=== PATIENT | male | born 1950 | race Caucasian/White ===

== ENCOUNTER 2019-06-04 09:18 | Day surgery (SDC) | payer OTHER ==
[2019-06-04 10:11] LABS: MPV 8.3 fL (7.6-11.3)
[2019-06-04] MEDS ORDERED: NA CHLORIDE 0.9% 1,000 ML ONE (10:11)
[2019-06-04] MEDS ORDERED: MIDAZOLAM HCL 2 MG/2 ML INJ ONE (10:11)
[2019-06-04] MEDS ORDERED: NALOXONE 0.4 MG/ML VIAL ONE (10:12)
[2019-06-04] MEDS ORDERED: FENTANYL CITR 100 MCG/2 ML ONE (10:12)
[2019-06-04 10:46] LABS: Platelet Estimate ADEQ
[2019-06-04 12:20] VITALS: BMI 31.2
--- NOTE | 2019-06-04 12:23 | RAD REPORT ---
EXAM DESCRIPTION: CT - Muscle/Soft Bx - 06/04/2019 11:49 am CLINICAL HISTORY: Right shoulder mass TECHNIQUE: Risks, benefits and alternatives to the procedure explained to patient and informed conse nt obtained Patient was medicated with 4 milligrams Versed and and 75 micrograms fentanyl intravenously. Consciou s sedation was performed for approximately 45 minutes. Nurse monitored the vital signs. The skin, subcutaneous tissues and muscle anesthetize with Lidocaine. Under CT guidance, 17 gauge needle was placed into the right shoulder mass. 18 gauge needle was then inserted through this and 6 core specimens obtained. The specimens vary in size from 3-13 millimeters. Material was given to pathology. Post biopsy images are unremarkable. Patient experienced immediate complication The preliminary pathology report is atypical cells All CT scans are performed using dose optimization technique as appropriate and may include automated exposure control or mA/KV adjustment according to patient size. IMPRESSION: Core biopsies of a right shoulder mass
[2019-06-04 14:03] VITALS: BP 101/62; TEMP 98; O2SAT 96
--- OUTSIDE RECORDS SUMMARY | 2019-06-14 17:59 | XMS REPORT ---
:1950 Author Organization [employer] Care Team Providers Name Role Phone Simon Hassan Provider Role Unavailable Allergies, Adverse Reactions, Alerts Substance Reaction Event Type penicillin Info Not Available Drug Allergy Problems Problem Type Condition Code Onset Dates Condition Status Assessment Pain in joint of right shoulder M25.511 Active Assessment Adhesive capsulitis of right M75.01 Active shoulder Medications Medication Code System Code Instructions Start Date End [place] [address] Active not defined Potassium 2-10 [place] [address] Active not defined 3-01 [place] [address] Active not defined taminophen 4-10 [place] [address] Active not defined 0-93 Results No Known Results Summary Purpose eClinicalWorks Submission
--- OUTSIDE RECORDS SUMMARY | 2019-06-14 17:59 | XMS REPORT ---
:1950 [facility] Address [address] [place] [address] Dr. [address] [place] [id number] Care Team Providers Name Role Phone Unavailable Unavailable Unavailable Problems This patient has no known problems. Allergies, Adverse Reactions, Alerts This patient has no known allergies or adverse reactions. Medications This patient has no known medications.
== END 2019-06-04 14:00 | disposition home or self-care (01) ==
LOC: DS 09:18
PROVIDERS: ATTEND Family Medicine
DX: C64.9 Malignant neoplasm of unspecified kidney, except renal pelvis (principal); C79.89 Secondary malignant neoplasm of other specified sites
CPT/HCPCS: 36415; 85049; 88305; 88333; 20206; J2250; J3010; J7030; J2310

== ENCOUNTER 2019-08-13 20:16 | Emergency (ER) | payer OTHER ==
--- OUTSIDE RECORDS SUMMARY | 2019-08-13 20:17 | XMS REPORT ---
[...] Date End [place] [address] Active not defined Potassium 2-10 [place] [address] Active not defined 3-01 [place] [address] Active not defined taminophen 4-10 [place] [address] Active not defined 0-93 Results No Known Results Summary Purpose eClinicalWorks Submission
--- OUTSIDE RECORDS SUMMARY | 2019-08-13 20:17 | XMS REPORT ---
:1950 [facility] Address [address] [place] [address] Dr. [address] [place] [address] Care Team Providers Name Role Phone Unavailable Unavailable Unavailable Problems This patient has no known problems. Allergies, Adverse Reactions, Alerts This patient has no known allergies or adverse reactions. Medications This patient has no known medications.
[2019-08-13] MEDS ORDERED: NA CHLORIDE 0.9% 500 ML ONE (20:59)
[2019-08-13 21:02] LABS: Hematocrit 41.1 % (39.6-49.0); Lymphocytes % 19.4 % (15.3-44.8); MPV 8.1 fL (7.6-11.3); RBC Red Blood Cell Count 4.95 M/uL (4.33-5.43)
[2019-08-13 21:18] LABS: Albumin 3.5 g/dL (3.4-5.0); Bilirubin Total 0.5 mg/dL (0.2-1.0); Potassium 4.6 mmol/L (3.5-5.1)
--- NOTE | 2019-08-13 23:09 | ER ---
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 Transition of care: patient was not received from another setting of care. Onset of symptoms was August 11, 2019. Risk Assessment: Do you want to hurt yourself or someone else? Patient reports no desire to harm self or others. Initial Sepsis Screen: Does the patient meet any 2 criteria? No. Patient's initial sepsis screen is negative. Does the patient have a suspected source of infection? No. Patient's initial sepsis screen is negative. Care prior to arrival: None. 20:35 Method Of Arrival: Ambulatory bb 20:35 Acuity: LEIDA 2 bb Historical: - Allergies: 20:44 No Known Allergies; bb - Home Meds: 20:44 ropinirole oral oral [Active]; Temazepam Oral [Active]; losartan oral oral [Active]; bb Hydrocodone-Acetaminophen Oral [Active]; radiation therapy [Active]; - PMHx: 20:44 COPD; Osteoporosis; clear cell cancer; bb - Immunization history:: Adult Immunizations up to date. - Social history:: Smoking status: Patient uses tobacco products, smokes one-half pack cigarettes per day. - Ebola Screening: : No symptoms or risks identified at this time. Screenin:26 Abuse screen: Denies threats or abuse. Denies injuries from another. Nutritional wh screening: No deficits noted. Tuberculosis screening: No symptoms or risk factors identified. Fall Risk None identified. Assessment: 20:45 General: Appears in no apparent distress. Behavior is calm, cooperative, appropriate wh for age. Pain: Denies pain. Neuro: Level of Consciousness is awake, alert, obeys commands, Oriented to person, place, time, situation, Appropriate for age. Cardiovascular: Heart tones S1 S2. Respiratory: Airway is patent Respiratory effort is even, unlabored, Respiratory pattern is regular, symmetrical, Breath sounds are clear bilaterally. GI: Abdomen is flat, non-distended. : No signs and/or symptoms were reported regarding the genitourinary system. EENT: Throat is pink. Derm: Skin is intact, is healthy with good turgor, Skin is pink, warm \T\ dry. normal. Musculoskeletal: Circulation, motion, and sensation intact. 21:30 Reassessment: Patient appears in no apparent distress at this time. No changes from previously documented assessment. Patient and/or family updated on plan of care and expected duration. Pain level reassessed. Patient is alert, oriented x 3, equal unlabored respirations, skin warm/dry/pink. 23:25 Reassessment: Patient is alert, oriented x 3, equal unlabored respirations, skin bb warm/dry/pink. pt verbalized understanding of and agrees to plan of care discharge instructions given pt ambulated with steady gait to exit accompanied by spouse. Vital Signs: 20:44 BP 158 / 89; Pulse 79; Resp 20 S; Temp 98.4(O); Pulse Ox 98% on R/A; Weight 98.88 kg bb (R); Height 5 ft. 11 in. (180.34 cm) (R); Pain 0/10; 21:32 BP 143 / 83; Pulse 74; Resp 18; Pulse Ox 97% ; wh 23:27 BP 160 / 92; Pulse 78; Resp 20 S; Pulse Ox 97% on R/A; bb 20:44 Body Mass Index 30.40 (98.88 kg, 180.34 cm) ED Course: 20:19 Patient arrived in ED. cl3 20:30 Sudhir Proctor PA is PHCP. jm 20:30 Alex Mustafa MD is Attending Physician. jmm 20:36 Triage completed. bb 20:38 Won Reyes is Primary Nurse. wh 20:44 Arm band placed on Patient placed in an exam room, on a stretcher, on pulse oximetry. Family accompanied patient. 21:25 Inserted saline lock: 22 gauge in left antecubital area, using aseptic technique. ca1 21:27 Patient has correct armband on for positive identification. Bed in low position. Call light in reach. Side rails up X 1. Pulse ox on. NIBP on. 22:20 Chest Pa And Lat (2 Views) XRAY In Process Unspecified. EDMS 23:26 No provider procedures requiring assistance completed. IV discontinued, intact, leobardo bleeding controlled, No redness/swelling at site. Pressure dressing applied. Administered Medications: 21:07 Drug: NS 0.9% 500 ml Route: IV; Rate: bolus; Site: left antecubital; Outcome: 23:08 Discharge ordered by . willi 23:26 Discharged to home ambulatory, with family. bb 23: Condition: stable 23:26 Discharge instructions given to patient, Instructed on discharge instructions, follow up and referral plans. medication usage, Demonstrated understanding of instructions, follow-up care, medications, Prescriptions given X 2. 23:28 Patient left the ED. bb Signatures: Dispatcher [employer] EDMS Sudhir Proctor PA PA jmm Ballard, Brenda, RN RN Won Bishop Cheryl RN RN Fermín Syed cl3
--- NOTE | 2019-08-13 23:10 | EDPHYS ---
Physician Documentation [facility] Name: Mookie Manning Age: 68 yrs Sex: Male : 1950 Arrival Date: 08/13/2019 Time: 20:19 Bed 14 Private MD: ED Physician Alex Mustafa HPI: 08/13 20:44 This 68 yrs old Male presents to ER via Ambulatory with complaints of jmm Weakness, Fever. 20:44 The patient or guardian reports cough. Onset: The symptoms/episode began/occurred jmm gradually. 20:44 Modifying factors: The symptoms are alleviated by nothing. jmm 20:44 Associated signs and symptoms: Pertinent positives: fever, sore throat. This is a 68 jmm year old male with a history of copd, clear cell cancer, presents to the ED with complaints of cough, body aches, sore throat beginning yesterday. Denies vomiting. Complains of diarrhea. . Historical: - Allergies: 20:44 No Known Allergies; bb - Home Meds: 20:44 ropinirole oral oral [Active]; Temazepam Oral [Active]; losartan oral oral [Active]; bb Hydrocodone-Acetaminophen Oral [Active]; radiation therapy [Active]; - PMHx: 20:44 COPD; Osteoporosis; clear cell cancer; bb - Immunization history:: Adult Immunizations up to date. - Social history:: Smoking status: Patient uses tobacco products, smokes one-half pack cigarettes per day. - Ebola Screening: : No symptoms or risks identified at this time. ROS: 20:44 Cardiovascular: Negative for chest pain, palpitations, and edema. jmm 20:44 Constitutional: Positive for body aches, fever. 20:44 ENT: Positive for sore throat. 20:44 Respiratory: Positive for cough. 20:44 Abdomen/GI: Positive for diarrhea. 20:44 All other systems are negative. Exam: 20:44 Constitutional: This is a well developed, well nourished patient who is awake, alert, jmm and in no acute distress. Head/Face: atraumatic. Eyes: EOMI, no conjunctival erythema appreciated ENT: Moist Mucus Membranes Neck: Trachea midline, Supple Chest/axilla: Normal chest wall appearance and motion. Cardiovascular: Regular rate and rhythm. No edema appreciated Respiratory: Normal respirations, no respiratory distress appreciated 20:44 Back: Normal ROM Skin: General appearance color normal MS/ Extremity: Moves all extremities, no obvious deformities appreciated, no edema noted to the lower extremities Neuro: Awake and alert, normal gait 20:44 ENT: Posterior pharynx: erythema, that is moderate. Vital Signs: 20:44 BP 158 / 89; Pulse 79; Resp 20 S; Temp 98.4(O); Pulse Ox 98% on R/A; Weight 98.88 kg bb (R); Height 5 ft. 11 in. (180.34 cm) (R); Pain 0/10; 21:32 BP 143 / 83; Pulse 74; Resp 18; Pulse Ox 97% ; wh 23:27 BP 160 / 92; Pulse 78; Resp 20 S; Pulse Ox 97% on R/A; bb 20:44 Body Mass Index 30.40 (98.88 kg, 180.34 cm) bb MDM: 20:32 Patient medically screened. mary kay 23:07 Data reviewed: vital signs, nurses notes. Counseling: I had a detailed discussion with willi the patient and/or guardian regarding: the historical points, exam findings, and any diagnostic results supporting the discharge/admit diagnosis, lab results, radiology results, the need for outpatient follow up, to return to the emergency department if symptoms worsen or persist or if there are any questions or concerns that arise at home. ED course: Patient is alert and non toxic in appearance in the ED. No signs of resp distress. Labs normal. Clinical signs of influenza. Will treat with tamiflu. Patient otherwise given strict return precautions. Patient understood and agrees with the plan of care. . 08/13 20:37 Order name: CBC with Diff; Complete Time: 21:25 [facility] 08/13 20:37 Order name: CMP; Complete Time: 21:25 [facility] 08/13 20:37 Order name: Procalcitonin; Complete Time: 21:54 [facility] 08/13 20:37 Order name: Lactate; Complete Time: 21:25 [facility] 08/13 20:37 Order name: Flu; Complete Time: 21:25 [facility] 08/13 20:37 Order name: Strep; Complete Time: 21:25 [facility] 08/13 20:37 Order name: Saline Lock; Complete Time: 21:07 [facility] 08/13 21:12 Order name: Throat Culture [facility] 08/13 21:59 Order name: Chest Pa And Lat (2 Views) XRAY willi Administered Medications: 21:07 Drug: NS 0.9% 500 ml Route: IV; Rate: bolus; Site: left antecubital; wh Disposition: 08/14 08:36 Co-signature as Attending Physician, Alex Mustafa MD I agree with the assessment and [facility] plan of care. Chart complete. Disposition: 08/13/19 23:08 Discharged to Home. Impression: Acute upper respiratory infection, unspecified. - Condition is Stable. - Discharge Instructions: Upper Respiratory Infection, Adult. - Prescriptions for Zithromax Z- Austyn 250 mg Oral Tablet - take 1 tablet by ORAL route as directed for 5 days Day 1 - take two (2) tablets one time. Day 2, 3, 4 , 5 take one (1) tablet once daily.; 6 tablet. Tamiflu 75 mg Oral Capsule - take 1 tablet by ORAL route every 12 hours for 5 days; 10 tablet. - Medication Reconciliation Form, Thank You Letter, Antibiotic Education, Prescription Opioid Use form. - Follow up: Private Physician; When: 2 - 3 days; Reason: Recheck today's complaints, Continuance of care, Re-evaluation by your physician. Signatures: Dispatcher [employer] Alex De La Cruz MD MD cha Mickail, Joel, PA PA jmm Ballard, Brenda, LJ RN Won Bishop Corrections: (The following items were deleted from the chart) 08/13 23:28 23:08 08/13/2019 23:08 Discharged to Home. Impression: Acute upper respiratory bb infection, unspecified. Condition is Stable. Forms are Medication Reconciliation Form, Thank You Letter, Antibiotic Education, Prescription Opioid Use. Follow up: Private Physician; When: 2 - 3 days; Reason: Recheck today's complaints, Continuance of care, Re-evaluation by your physician. willi
[2019-08-13 23:51] VITALS: TEMP 98.4
[2019-08-13 23:52] VITALS: O2SAT 97
[2019-08-13 23:54] VITALS: BP 160/92
--- NOTE | 2019-08-14 08:52 | RAD REPORT ---
EXAM DESCRIPTION: RAD - Chest Pa And Lat (2 Views) - 08/13/2019 10:19 pm CLINICAL HISTORY: cough, fever COMPARISON: Chest Pa And Lat (2 Views) dated 10/22/2017; CHEST PA AND LAT 2 VIEW dated 11/09/2013; CT-R AD THERAPY FLD PLACE-CHEST dated 07/15/2019 TECHNIQUE: Frontal and lateral views of the chest were obtained. FINDINGS: The lungs are clear of an acute mass or infiltrate. Interstitial pattern is prominent but matches comparison. Heart size is normal and central vasculature is within normal limits. No pleur al effusion or pneumothorax seen. Lateral view shows significant compression fracture near the thora columbar junction similar to the 2018 study. Patient has a known mass of the right shoulder. The scap hira bone destruction is a known finding. No acute aortic finding. Aorta is tortuous in the lower thor acic portion. This matches comparison. IMPRESSION: No acute cardiopulmonary process. Bone destruction is present in the right scapula and right shoulder region. Patient has a known mass that is undergoing treatment.
== END 2019-08-13 23:28 | disposition home or self-care (01) ==
LOC: ER 20:16
DX: J06.9 Acute upper respiratory infection, unspecified (principal); J44.9 Chronic obstructive pulmonary disease, unspecified; F17.210 Nicotine dependence, cigarettes, uncomplicated
CPT/HCPCS: 87070; 85025; 36415; 87081; 83605; 80053; 84145; 87804 ×2; 71046; 99284; J7040

== ENCOUNTER 2021-06-13 14:33 | Observation (INO) | payer OTHER ==
[2021-06-13] MEDS ORDERED: NA CHLORIDE 0.9% 50 ML ONE (14:40)
[2021-06-13] MEDS ORDERED: ASPIRIN 81 MG CHEWABLE TABLET ONE (15:17)
[2021-06-13] MEDS ORDERED: NA CHLORIDE 0.9% 1,000 ML ONE (15:18)
[2021-06-13] MEDS ORDERED: MORPHINE 2 MG/ML SYR ONE (15:18)
[2021-06-13 15:34] LABS: Absolute Lymphocytes (CBC) 1.6 K/uL (0.7-4.9); Hematocrit 41.4 % (39.6-49.0); Lymphocytes % 22.1 % (15.3-44.8); MPV 8.3 fL (7.6-11.3); RBC Red Blood Cell Count 4.31 M/uL (4.33-5.43)
[2021-06-13 15:38] LABS: Protime INR 1.09
[2021-06-13 15:53] LABS: ALT/SGPT 29 U/L (12-78); AST/SGOT 19 U/L (15-37); Albumin 3.4 g/dL (3.4-5.0); Alkaline Phosphatase 103 U/L (45-117); BUN Blood Urea Nitrogen 15 mg/dL (7-18); Bicarbonate 27 mmol/L (21-32); Bilirubin Direct 0.2 mg/dL (0-0.2); Bilirubin Total 0.5 mg/dL (0.2-1.0); Glucose Level 97 mg/dL (74-106); Potassium 3.7 mmol/L (3.5-5.1); Sodium Level 138 mmol/L (136-145)
[2021-06-13 15:54] LABS: NT PRO-BNP 243 pg/mL (<125); Troponin (Emerg Dept Use Only) < 0.02 ng/mL (0.0-0.045)
--- NOTE | 2021-06-13 16:11 | EDPHYS ---
Physician Documentation [facility] Name: Mookie Manning Age: 70 yrs Sex: Male : 1950 Arrival Date: 06/13/2021 Time: 14:35 Bed 15 Private MD: Alexandru Oliveira ED Physician Mickey Okeefe HPI: 06/13 15:05 This 70 yrs old Male presents to ER via Ambulatory with complaints of Chest cp Pain. 15:05 The patient or guardian reports chest pain that is located primarily in the anterior cp chest wall, left. 15:05 Onset: yesterday. cp 15:05 Associated signs and symptoms: Pertinent positives: tingling of hands, Pertinent cp negatives: abdominal pain, diaphoresis, lower extremity pain, lower extremity swelling, palpitations, shortness of breath, syncope. 15:05 Patient reports intermittent episodes of chest pain that started yesterday morning cp while in garage. Patient reports pain resolved as the day progressed and returned today while in garage. Patient reports pain has continued while in ED. Historical: - Allergies: 14:44 No Known Allergies; aa5 - PMHx: 14:44 COPD; Osteoporosis; aa5 14:46 Clear cell carcinoma; aa5 - Immunization history:: Client reports having NOT received the Covid vaccine. - Social history:: Smoking status: Patient reports the use of cigarette tobacco products, smokes one pack cigarettes per day. ROS: 15:10 Cardiovascular: Positive for chest pain, Negative for edema, palpitations. cp 15:10 Eyes: Negative for injury, pain, redness, and discharge. cp 15:10 Constitutional: Negative for body aches, chills, fever, poor PO intake. 15:10 ENT: Negative for ear pain, sore throat, difficulty swallowing, difficulty handling secretions. 15:10 Respiratory: Positive for shortness of breath, on exertion. Negative for cough, wheezing. 15:10 Abdomen/GI: Negative for abdominal pain, nausea, vomiting, and diarrhea. 15:10 Back: Positive for radiated pain, of the thoracic area. 15:10 Neuro: Negative for altered mental status, headache, numbness, tingling, weakness. cp 15:10 All other systems are negative. Exam: 15:11 ECG was reviewed by the Attending Physician. cp 15:15 Constitutional: The patient appears in no acute distress, alert, awake, cp non-diaphoretic, non-toxic, well developed, well nourished. 15:15 Head/Face: Normocephalic, atraumatic. cp 15:15 Eyes: Periorbital structures: appear normal, Conjunctiva: normal, no exudate, no cp injection, Sclera: no appreciated abnormality, Lids and lashes: appear normal, bilaterally. 15:15 ENT: External ear(s): are unremarkable, Nose: is normal, Mouth: Lips: moist, Oral cp mucosa: moist, Posterior pharynx: Airway: no evidence of obstruction, patent. 15:15 Neck: ROM/movement: is normal, is supple, without pain, no range of motions limitations, no nuchal rigidity. 15:15 Chest/axilla: Inspection: normal. 15:15 Cardiovascular: Rate: normal, Rhythm: regular, Edema: is not appreciated, JVD: is not appreciated. 15:15 Respiratory: the patient does not display signs of respiratory distress, Respirations: normal, no use of accessory muscles, no retractions, labored breathing, is not present, Breath sounds: are clear throughout, no decreased breath sounds, no stridor, no wheezing. 15:15 Abdomen/GI: Inspection: abdomen appears normal, Palpation: abdomen is soft and non-tender, in all quadrants. 15:15 Back: pain, that is mild, of the thoracic area, ROM is painful, with flexion. 15:15 Skin: cellulitis, is not appreciated, no rash present. 15:15 Neuro: Orientation: to person, place \\T\\ time. Mentation: is normal, Motor: moves all fours, strength is normal. Vital Signs: 14:45 BP 133 / 85; Pulse 69; Resp 18 S; Temp 98.3(TE); Pulse Ox 99% on R/A; Weight 90.72 kg aa5 (R); Height 5 ft. 11 in. (180.34 cm) (R); 15:00 BP 145 / 87; Pulse 65; Resp 17; Pulse Ox 99% ; bp 16:00 BP 144 / 93; Pulse 63; Resp 16; Pulse Ox 98% ; bp 17:00 BP 163 / 93; Pulse 59; Resp 16; Pulse Ox 97% ; bp 17:58 BP 157 / 98; Pulse 72; Resp 16; Pulse Ox 98% ; bp 20:00 BP 150 / 84; Pulse 67; Resp 18; Pulse Ox 97% ; Pain 6/10; dc2 14:45 Body Mass Index 27.89 (90.72 kg, 180.34 cm) aa5 MDM: 15:01 Patient medically screened. cp 15:30 Differential diagnosis: abnormal EKG, acute myocardial infarction, myocarditis, cp pleurisy, pneumonia, pneumothorax, stable angina, unstable angina. 16:10 Data reviewed: vital signs, nurses notes, lab test result(s), EKG, radiologic studies, cp plain films. 16:10 The patient was given aspirin in the Emergency Department. Test interpretation: by ED cp physician or midlevel provider: ECG, plain radiologic studies. Counseling: I had a detailed discussion with the patient and/or guardian regarding: the historical points, exam findings, and any diagnostic results supporting the discharge/admit diagnosis, lab results, radiology results, the need for further work-up and treatment in the hospital, smoking cessation. Response to treatment: the patient's symptoms have markedly improved after treatment. Physician consultation: Alexandru Oliveira MD was called at 16:05, was contacted at 16:05, regarding admission, to the telemetry unit. patient's condition. 06/13 15:02 Order name: Basic Metabolic Panel 06/13 15: Order name: CBC with Diff; Complete Time: 16:01 06/13 16:01 Interpretation: Normal except: RBC 4.31. 06/13 15:02 Order name: LFT's; Complete Time: 16:01 06/13 16:02 Interpretation: Normal except: GLOB 3.6; A/G 0.9. 06/13 15:02 Order name: Magnesium; Complete Time: 16:01 06/13 15:02 Order name: NT PRO-BNP; Complete Time: 16:01 06/13 16:02 Interpretation: Abnormal: NT PRO-BNP 243. 06/13 15:02 Order name: PT-INR; Complete Time: 16:01 06/13 15:02 Order name: Troponin (emerg Dept Use Only); Complete Time: 16:01 06/13 15:03 Order name: Basic Metabolic Panel; Complete Time: 16:01 EDMS 06/13 15:14 Order name: COVID-19 SARS RT PCR (Document "Date of Onset" if Symptomatic) 06/13 16:28 Order name: Basic Metabolic Panel [facility] 06/13 16:28 Order name: Troponin I [facility] 06/13 16:28 Order name: Troponin I [facility] 06/13 16:47 Order name: Basic Metabolic Panel [facility] 06/13 16:47 Order name: CBC with Automated Diff [facility] 06/13 15:02 Order name: XRAY Chest (1 view); Complete Time: 17:16 06/13 17:16 Interpretation: Report review. 06/13 15:02 Order name: EKG; Complete Time: 15:03 06/13 15:02 Order name: Cardiac monitoring; Complete Time: 15:53 06/13 15:02 Order name: EKG - Nurse/Tech; Complete Time: 15:53 06/13 15:02 Order name: IV Saline Lock; Complete Time: 15:53 06/13 15:02 Order name: Labs collected and sent; Complete Time: 15:53 06/13 15:02 Order name: O2 Per Protocol; Complete Time: 15:53 06/13 15:02 Order name: O2 Sat Monitoring; Complete Time: 15:53 06/13 16:20 Order name: Diet Regular; Complete Time: 16:20 06/13 16:28 Order name: CONS Physician Consult; Complete Time: 19:09 [facility] 06/13 16:28 Order name: EKG Electrocardiogram; Complete Time: 19: [facility] 06/13 16:28 Order name: EKG Electrocardiogram; Complete Time: 19: EDMT EC:11 Rate is 65 beats/min. Rhythm is regular. DE interval is normal. QRS interval is normal. cp QT interval is normal. T waves are Inverted in lead aVR. Interpreted by me. Reviewed by me. Administered Medications: 15:24 Drug: Aspirin Chewable Tablet 324 mg Route: PO; bp 17:56 Follow up: Response: No adverse reaction bp 15:24 Drug: morphine 2 mg Route: IVP; Site: right antecubital; bp 17:56 Follow up: Response: No adverse reaction; Pain is decreased bp 15:24 Drug: NS 0.9% 500 ml Route: IV; Rate: bolus; Site: right antecubital; bp 17:56 Follow up: IV Status: Completed infusion; IV Intake: 500ml bp 15:25 Drug: NS 0.9% 500 ml Route: IV; Rate: 125 ml/hr; Site: right antecubital; bp 20:05 Follow up: IV Status: Completed infusion; IV Intake: 500ml dc2 Disposition Summary: 06/13/21 16:10 Hospitalization Ordered Hospitalization Status: Observation cp Provider: Alexandru Oliveira cp Location: Telemetry/MedSurg (observation) cp Condition: Stable cp Problem: new cp Symptoms: have improved cp Bed/Room Type: Standard cp Room Assignment: 223(06/13/21 19:09) dw Diagnosis - Angina pectoris, unspecified cp Forms: - Medication Reconciliation Form cp - SBAR form cp Addendum: 06/16/2021 19:07 Co-signature as Attending Physician, Mickey moreno Signatures: Dispatcher [employer] Cande Gaming, RN RN Mickey Velasquez MD MD pkl Calderon, Audri RN RN aa5 Alex Andrews PA PA cp Peltier, Brian RN RN [facility] RN dc2 Corrections: (The following items were deleted from the chart) 06/13 14:46 14:44 PMHx: clear cell cancer; aa5 aa5 19:09 16:10 cp dw
--- NOTE | 2021-06-13 16:11 | ER ---
Nurse's Notes [facility] Name: Mookie Manning Age: 70 yrs Sex: Male : 1950 Arrival Date: 06/13/2021 Time: 14:35 Bed 15 Private MD: Alexandru Oliveira Diagnosis: Angina pectoris, unspecified Presentation: 06/13 14:45 Chief complaint: Patient states: chest pain that began yesterday, pt also reports SOB aa5 on exertion and states "both of my hands feel kind of numb". Coronavirus screen: At this time, the client does not indicate any symptoms associated with coronavirus-19. Ebola Screen: No symptoms or risks identified at this time. Initial Sepsis Screen: Does the patient meet any 2 criteria? No. Patient's initial sepsis screen is negative. Does the patient have a suspected source of infection? No. Patient's initial sepsis screen is negative. Risk Assessment: Do you want to hurt yourself or someone else? Patient reports no desire to harm self or others. Onset of symptoms was June 12, 2021. 14:45 Acuity: LEIDA 3 aa5 14:45 Method Of Arrival: Ambulatory aa5 Triage Assessment: 14:52 General: Appears distressed, uncomfortable, Behavior is cooperative, appropriate for bp age, anxious. Pain: Complains of pain in chest. EENT: No deficits noted. Neuro: Level of Consciousness is awake, alert, obeys commands. Cardiovascular: Rhythm is sinus rhythm. Historical: - Allergies: 14:44 No Known Allergies; aa5 - PMHx: 14:44 COPD; Osteoporosis; aa5 14:46 Clear cell carcinoma; aa5 - Immunization history:: Client reports having NOT received the Covid vaccine. - Social history:: Smoking status: Patient reports the use of cigarette tobacco products, smokes one pack cigarettes per day. Screenin:00 Abuse screen: Denies threats or abuse. Denies injuries from another. Nutritional bp screening: No deficits noted. Tuberculosis screening: No symptoms or risk factors identified. Fall Risk None identified. Assessment: 14:45 General: SEE TRIAGE NOTE. bp 16:00 Reassessment: No changes from previously documented assessment. Patient and/or family bp updated on plan of care and expected duration. Pain level reassessed. ADMIT INITIATED. 17:56 Reassessment: No changes from previously documented assessment. Patient and/or family bp updated on plan of care and expected duration. Pain level reassessed. ADMIT IN PROCESS. 19:20 Reassessment: Attempt to call report, no answer . dc2 19:30 Pain: Pain began 1 day ago. dc2 19:30 Pain: Denies pain. dc2 19:47 Reassessment: Attempt to call report , no one on the 2nd floor is answering the phone dc2 after multiple attempts. 19:48 Reassessment: Call 2nd floor link machine operator, speak to Zbigniew for report. dc2 20:00 Reassessment: Pt instructed on POC re transfer to room 223. Pt verbalizes understanding.dc2 20:23 Reassessment: Pt updated on POC regarding going upstairs to room. EDT extremely busy dc2 but will be going up shortly. Pt very calm and states its no problem . Vital Signs: 14:45 BP 133 / 85; Pulse 69; Resp 18 S; Temp 98.3(TE); Pulse Ox 99% on R/A; Weight 90.72 kg aa5 (R); Height 5 ft. 11 in. (180.34 cm) (R); 15:00 BP 145 / 87; Pulse 65; Resp 17; Pulse Ox 99% ; bp 16:00 BP 144 / 93; Pulse 63; Resp 16; Pulse Ox 98% ; bp 17:00 BP 163 / 93; Pulse 59; Resp 16; Pulse Ox 97% ; bp 17:58 BP 157 / 98; Pulse 72; Resp 16; Pulse Ox 98% ; bp 20:00 BP 150 / 84; Pulse 67; Resp 18; Pulse Ox 97% ; Pain 6/10; dc2 14:45 Body Mass Index 27.89 (90.72 kg, 180.34 cm) aa5 ED Course: 14:35 Patient arrived in ED. ds1 14:35 Alexandru Oliveira MD is Private Physician. ds1 14:44 Arm band placed on. aa5 14:46 Triage completed. aa5 14:50 Jefferson Berumen, LJ is Primary Nurse. bp 14:50 Alex Andrews PA is PHCP. cp 14:50 Mickey Okeefe MD is Attending Physician. cp 15:12 EKG done, by ED staff, reviewed by Alex ODELL. gd 15:20 Inserted saline lock: 20 gauge in right antecubital area, using aseptic technique. bp Blood collected. Patient maintains SpO2 saturation greater than 95% on room air. 15:54 XRAY Chest (1 view) Sent. bp 15:54 Basic Metabolic Panel Sent. bp 15:55 XRAY Chest (1 view) In Process Unspecified. EDMS 16:00 Patient has correct armband on for positive identification. Bed in low position. Call bp light in reach. Side rails up X2. front desk monitor on. Pulse ox on. NIBP on. 16:10 Alexandru Oliveira MD is Hospitalizing Provider. cp 19:09 CBC with Automated Diff Sent. bp 19:09 Basic Metabolic Panel Sent. bp 19:09 Troponin I Sent. bp 19:09 Troponin I Sent. bp 19:09 Basic Metabolic Panel Sent. bp 19:21 No provider procedures requiring assistance completed. dc2 19:21 IV is patent, dc2 Administered Medications: 15:24 Drug: Aspirin Chewable Tablet 324 mg Route: PO; bp 17:56 Follow up: Response: No adverse reaction bp 15:24 Drug: morphine 2 mg Route: IVP; Site: right antecubital; bp 17:56 Follow up: Response: No adverse reaction; Pain is decreased bp 15:24 Drug: NS 0.9% 500 ml Route: IV; Rate: bolus; Site: right antecubital; bp 17:56 Follow up: IV Status: Completed infusion; IV Intake: 500ml bp 15:25 Drug: NS 0.9% 500 ml Route: IV; Rate: 125 ml/hr; Site: right antecubital; bp 20:05 Follow up: IV Status: Completed infusion; IV Intake: 500ml dc2 Intake: 17:56 IV: 500ml; Total: 500ml. bp 20:05 IV: 500ml; Total: 1000ml. dc2 Outcome: 16:10 Decision to Hospitalize by Provider. cp 19:52 Admitted to Tele accompanied by tech, via wheelchair, room 223, with chart, Report dc2 called to LJ Coy 19:52 Condition: stable 20:38 Patient left the ED. dc2 Signatures: Dispatcher [employer] [facility] Hardy, Doris ds1 Yovana Zavala RN RN aa5 Alex Andrews PA PA cp Jefferson Berumen RN RN bp MateuszDeborah RN RN dc2 Willis Carrera Corrections: (The following items were deleted from the chart) 14:46 14:44 PMHx: clear cell cancer; aa5 aa5
[2021-06-13] MEDS ORDERED: ONDANSETRON 4 MG/2 ML VIAL IV PRN (16:24)
[2021-06-13] MEDS ORDERED: MORPHINE 2 MG/ML SYR IV PRN (16:31)
--- NOTE | 2021-06-13 16:42 | RAD REPORT ---
EXAM DESCRIPTION: RAD - Chest Single View - 06/13/2021 3:55 pm CLINICAL HISTORY: CHEST PAIN COMPARISON: August 2019 two view chest, 05/30/2021 bone scan, 05/30/2021 CT chest abdomen and pelvi s TECHNIQUE: AP portable chest image was obtained 06/13/2021 3:55 pm . FINDINGS: Chronic interstitial lung pattern is present matching comparison. Heart and vasculature ar e normal. No measurable pleural effusion and no pneumothorax. No hilar mass or lymphadenopathy identi fied. Bilateral shoulder joint degenerative changes. Patient has a known right scapula lesion. This w as stable on the recent CT study with a bone scan showing no abnormal activity. No acute aortic findi ngs suspected. IMPRESSION: No acute cardiopulmonary process.
[2021-06-13 21:30] VITALS: BMI 3905.5
[2021-06-14 03:56] LABS: Absolute Lymphocytes (CBC) 2.1 K/uL (0.7-4.9); Basophils % 0.5 % (0-1.3); Hematocrit 40.6 % (39.6-49.0); Lymphocytes % 29.5 % (15.3-44.8); RBC Red Blood Cell Count 4.16 M/uL (4.33-5.43)
[2021-06-14 04:07] LABS: Potassium 3.8 mmol/L (3.5-5.1)
[2021-06-14] MEDS ORDERED: ASPIRIN EC 81 MG TAB PO SCH (09:00)
[2021-06-14 10:18] VITALS: O2SAT 96
[2021-06-14 10:22] VITALS: BP 143/89
--- NOTE | 2021-06-14 11:21 | EKG ---
Test Date: 2021-06-13 Test Time: 15:07:44 Police Shift Commander: AIYANA MEASUREMENT RESULTS: Intervals: Rate: 65 NH: 196 QRSD: 94 QT: 424 QTc: 440 [place]: P: 58 NH: 196 QRS: 58 T: 59 INTERPRETIVE STATEMENTS: Normal sinus rhythm Normal ECG Compared to ECG 06/20/2020 14:00:27 Atrial premature complex(es) no longer present Electronically Signed On 06-14-21 11:20:17 TIMBER SELECTOR by Yaw Atkins
[2021-06-14] MEDS ORDERED: LOSARTAN/HCTZ 50-12.5 PO SCH (11:40)
[2021-06-14] MEDS ORDERED: HYDROCODONE/APAP 5/325 MG TAB PO PRN (12:10)
[2021-06-14 12:19] VITALS: TEMP 97.7
[2021-06-14] MEDS ORDERED: TEMAZEPAM 15 MG CAP PO PRN (21:00)
--- NOTE | 2021-06-15 07:33 | ECHO ---
HEIGHT: 5 ft 11 in WEIGHT: 200 lb 0 oz DATE OF STUDY: 06/14/[address]: Alexandru Oliveira MD 2-DIMENSIONAL: YES M.MODE: YES DOPPLER: YES COLOR FLOW: YES TDS: PORTABLE: DEFINITY: BUBBLE STUDY: DIAGNOSIS: CHEST PAIN CARDIAC HISTORY: CATHERIZATION: NO SURGERY: NO PROSTHETIC VALVE: NO PACEMAKER: NO MEASUREMENTS (cm) DIASTOLIC (NORMALS) SYSTOLIC (NORMALS) IVSd 1.1 (0.6-1.2) LA Diam 2.8 (1.9-4.0) LVEF 65% LVIDd 4.5 (3.5-5.7) LVIDs 2.9 (2.0-3.5) %FS 36% LVPWd 1.2 (0.6-1.2) Ao Diam 3.1 (2.0-3.7) 2 DIMENSIONAL ASSESSMENT: RIGHT ATRIUM: NORMAL LEFT ATRIUM: NORMAL RIGHT VENTRICLE: NORMAL LEFT VENTRICLE: NORMAL TRICUSPID VALVE: NORMAL MITRAL VALVE: NORMAL PULMONIC VALVE: NORMAL AORTIC VALVE: NORMAL PERICARDIAL EFFUSION: NONE AORTIC ROOT: NORMAL LEFT VENTRICULAR WALL MOTION: NORMAL DOPPLER/COLOR FLOW: NORMAL COMMENTS: NORMAL 2-DIMENSIONAL ECHOCARDIOGRAM WITH DOPPLER. NO WALL MOTION ABNORMALITY. NO EFFUSION. TECHNOLOGIST: LEANN INMAN
[2021-06-15] MEDS ORDERED: TIOTROPIUM 5 SPRAYS/INHALER IH SCH (09:00)
--- NOTE | 2021-06-15 15:56 | SS ---
Date of Discharge: 06/14/2021 Subjective: The patient presented to the emergency room after instructed to appear there after mahesh ng my office where he complained of some chest discomfort with exertion. No prior history of this. When he was seen in the emergency room, a tentative diagnosis of angina was made. Cardiac enzymes __ were normal as were his EKG. At this time, he was admitted for observation and cardiac evalu ation. Workup included remainder of his chemistries. An echo , which were normal, seen by Cardiology, who felt a possibility of angina is there. However, he felt he could do the stress test on an outpatient basis. During his hospital stay, his blood pressure was minimally elevated. His r isk factors include hypertension, which has been under relatively good control over the past year and smoking. 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 He will be discharged for followup by Cardiology with a Cardiolite stress test and obviously depending on the results, the treatment will be implemented. 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 HR/MODL Voice ID: [id number] Report ID: [id number]
--- OUTSIDE RECORDS SUMMARY | 2021-06-17 18:15 | XMS REPORT | Continuity of Care Document ---
:1950 Author Organization [facility] t Address [address] [place] [address] Care Team Providers Name Role Phone Unavailable Unavailable Unavailable Problems Condition Condition Condition Status Onset Resolution Last Treating Co mments Source Name Details Category Date Date Treatment Clinician Date Pain in Pain in Diagnosis Active [facility] - right right [facility] shoulder shoulder [facility] Adhesive Adhesive Diagnosis Active [facility] capsulitis capsulitis Galina kes - of right of right Memori a shoulder shoulder [facility] Allergies, Adverse Reactions, Alerts Allergy Allergy Status Severity Reaction(s) Onset Inactive Treating Comm ents Source Name Type Date Date Clinician penicill Adverse Active Info Not [facility] in Reaction Available [facility] Medications Ordered Filled Start Stop Current Ordering Indication Dosage Frequency Signature Comments Components Source Medication Medication Date Date Medication? Clinician (SIG) Name Name Losartan Losartan Yes Simon not [facility] Potassium Potassium Hassan defined Galina kes - [facility] Ropinirole Ropinirole Yes Simon not [facility] HCl HCl Hassan defined [facility] Hydrocodone Hydrocodone Yes Simon not [facility] -Acetaminop -Acetaminop Hassan defined [facility] - hen hen [facility] Temazepam Temazepam Yes Simno not [facility] Hassan defined [facility] - [facility] Procedures This patient has no known procedures. Encounters Start End Encounter Admission Attending Care Care Encounter Source Date/Time Date/Time Type Type Clinicians Facility Department ID 2019-03-27 2019-03-27 [facility] [id number] [facility] [address] 09:30:00 09:30:00 t [facility] - and [facility] Results This patient has no known results.
--- NOTE | 2021-06-17 21:10 | CON ---
Date of Consultation: 06/14/2021 Reason For Consultation: Chest pain. History Of Present Illness: Mr. Manning is a 70-year-old, has a history of COPD, osteoporosis. He has metastatic cancer that is present in the right upper extremity. He is on immunotherapy for now. Came in with atypical chest pain, mid epigastric to the left side with no nausea, vomiting, diaphore sis, PND, orthopnea, pedal edema, palpitations, or syncope. He is pain-free today. Echo was normal. EKG was normal. He wants to go home. I did not examine Mr. Manning. His examination by [facility] physicians were normal. He was slightly hypertensive. He is allergic to penicillin. His kidney f unction was normal. His medical regimen includes aspirin, losartan with hydrochlorothiazide, which i s what he takes at home. I am comfortable with Mr. Manning going home. I will make an arrangement for him to have an outpatient stress test in the near future. The case was discussed with Dr. Oliveira. SHAWNA/VARGAS Voice ID: [id number] Report ID: [id number]
== END 2021-06-14 17:48 | disposition home or self-care (01) ==
LOC: ER 14:33 → ERHOLD 16:23 → 2ND 19:56
PROVIDERS: ADMIT Family Medicine; ATTEND Family Medicine
DX: R07.9 Chest pain, unspecified (principal); I10 Essential (primary) hypertension; C40.00 Malignant neoplasm of scapula and long bones of unspecified upper limb; C76.40 Malignant neoplasm of unspecified upper limb; J44.9 Chronic obstructive pulmonary disease, unspecified; M81.0 Age-related osteoporosis without current pathological fracture; Z20.822 Contact with and (suspected) exposure to COVID-19
CPT/HCPCS: 96361; 93005; 93306; 85025 ×2; 80048 ×2; 36415; 83735; 85610; 80076; 84484 ×3; 83880; 71045; 96374; 99285; U0003; J2270 ×2; J7040; G0378 ×3

== ENCOUNTER 2021-12-23 20:02 | Observation (INO) | payer OTHER ==
--- OUTSIDE RECORDS SUMMARY | 2021-12-23 20:05 | XMS REPORT | Continuity of Care Document ---
:1950 Author Organization [facility] t Address [address] [place] [address] Care Team Providers Name Role Phone DILLARD Attending Clinician Unavailable Roxanne Attending Clinician Unavailable OTRITO KOEHLER Attending Clinician Unavailable Dany HILLS Admitting Clinician Unavailable Payers Payer Name Policy Type Policy Number Effective Date Expiration Date Demetris newton [facility] [id number] 2021 00:00:00 2024 00:0 0:00 Problems Condition Condition Condition Status Onset Resolution Last Treating Co mments Source Name Details Category Date Date Treatment Clinician Date Pain in Pain in Diagnosis Active Commo n joint of joint of Spirit right [facility] Adhesive Adhesive Diagnosis Active Com mon capsulitis capsulitis Sp zeinab of right of right [facility] Allergies, Adverse Reactions, Alerts Allergy Allergy Status Severity Reaction(s) Onset Inactive Treating Comm ents Source Name Type Date Date Clinician penicill Adverse Active Info Not Commo n in Reaction Available [facility] Medications Ordered Filled Start Stop Current Ordering Indication Dosage Frequency Signature Comments Components Source Medication Medication Date Date Medication? Clinician (SIG) Name Name Losartan Losartan Yes Simon not Comm on Potassium Potassium Hassan defined Sp zeinab [facility] Ropinirole Ropinirole Yes Simon not Common HCl HCl Hassan defined [facility] Hydrocodone Hydrocodone Yes Simon not Common -Acetaminop -Acetaminop Hassan defined [facility] Temazepam Temazepam Yes Simon not Co mmon Hassan defined [facility] Procedures This patient has no known procedures. Encounters Start End Encounter Admission Attending Care Care Encounter Source Date/Time Date/Time Type Type Clinicians Facility Department ID 2021-12-22 Outpatient [facility] [id number] [place] 08:00:30 [id number] [facility] 2021-12-19 Outpatient DILLARD, [facility] [id number] [place] 14:33:11 KIRBYUND [id number] [facility] 2021-10-02 Out[facility], [facility] [id number] 2 Common 14:47:01 Alexandru [facility] 2021-08-30 Out[facility] Roxanne[facility] [id number] 2 Common 14:40:35 Alexandru [facility] 2021-08-30 Outpatient Roxanne, [facility] [id number] 2 Common 12:00:00 Alexandru [id number] [facility] 2021-08-30 Outpatient Roxanne, [facility] [id number] 2 Common 11:20:28 Alexandru [id number] [facility] 2021-09-19 2021-09-23 Inpatient U ZAKIA, [facility] [id number] [facility] 19:02:00 16:11:00 JUNE 2019-03-27 2019-03-27 [facility] [id number] Common 09:30:00 09:30:00 t Bone Bone [facility] Sp[facility] t and [facility] Results This patient has no known results.
[2021-12-23 21:00] LABS: Absolute Lymphocytes (CBC) 2.2 K/uL (0.7-4.9); Hematocrit 41.2 % (39.6-49.0); Lymphocytes % 24.2 % (15.3-44.8); MPV 7.9 fL (7.6-11.3); RBC Red Blood Cell Count 4.35 M/uL (4.33-5.43)
[2021-12-23 21:15] LABS: Urine Blood Trace-intact (Negative); Urine Glucose Negative (Negative); Urine Protein Negative (Negative); Urine Specific Gravity 1.015 (1.005-1.030); Urine pH 6.5 (5.0-7.0)
[2021-12-23 21:16] LABS: Potassium 3.7 mmol/L (3.5-5.1)
[2021-12-23 21:18] LABS: Troponin High Sensitivity 174.5 pg/mL (<58.9)
[2021-12-23] MEDS ORDERED: NA CHLORIDE 0.9% 0 ML ONE (21:33)
[2021-12-23] MEDS ORDERED: NA CHLORIDE 0.9% 1,000 ML ONE (21:36)
--- NOTE | 2021-12-23 22:00 | EDPHYS ---
Physician Documentation [facility] Name: Mookie Manning Age: 71 yrs Sex: Male : 1950 Arrival Date: 12/23/2021 Time: 20:04 Bed 7 Private MD: TRIP Physician Alex Mustafa HPI: 12/23 21:02 This 71 yrs old Male presents to ER via Wheelchair with complaints of Low blood mary kay pressure, General Weakness, Fainting. 21:02 The patient has experienced near-syncope. Onset: The symptoms/episode began/occurred 2 mary kay day(s) ago. Duration: The patient has had multiple episodes. Context: the episode(s) was witnessed, by family, occurred at home. Associated injury: The patient did not suffer any apparent associated injury. Associated signs and symptoms: The patient has no apparent associated signs or symptoms. Current symptoms: Currently, the patient is not experiencing any symptoms. The patient has experienced similar episodes in the past, a few times. Historical: - Allergies: 20:28 No Known Allergies; tw5 - Home Meds: 20:28 Hydrocodone-Acetaminophen Oral [Active]; losartan Oral [Active]; radiation therapy tw5 [Active]; ropinirole Oral [Active]; temazepam Oral [Active]; - PMHx: 20:28 Clear cell carcinoma; COPD; Osteoporosis; tw5 - Immunization history:: Flu vaccine is not up to date. - Social history:: Smoking status: Patient reports the use of cigarette tobacco products, smokes one pack cigarettes per day. - Family history:: not pertinent. ROS: 21:02 Constitutional: Negative for fever, chills, and weight loss, Eyes: Negative for injury, mary kay pain, redness, and discharge, ENT: Negative for injury, pain, and discharge, Neck: Negative for injury, pain, and swelling, Cardiovascular: Negative for chest pain, palpitations, and edema, Respiratory: Negative for shortness of breath, cough, wheezing, and pleuritic chest pain, Abdomen/GI: Negative for abdominal pain, nausea, vomiting, diarrhea, and constipation, Back: Negative for injury and pain, : Negative for injury, bleeding, discharge, and swelling, MS/Extremity: Negative for injury and deformity, Skin: Negative for injury, rash, and discoloration, Psych: Negative for depression, anxiety, suicide ideation, homicidal ideation, and hallucinations, Allergy/Immunology: Negative for hives, rash, and allergies, Endocrine: Negative for neck swelling, polydipsia, polyuria, polyphagia, and marked weight changes, Hematologic/Lymphatic: Negative for swollen nodes, abnormal bleeding, and unusual bruising. 21:02 Neuro: Positive for weakness. Exam: 21:02 Constitutional: This is a well developed, well nourished patient who is awake, alert, mary kay and in no acute distress. Head/Face: Normocephalic, atraumatic. Eyes: Pupils equal round and reactive to light, extra-ocular motions intact. Lids and lashes normal. Conjunctiva and sclera are non-icteric and not injected. Cornea within normal limits. Periorbital areas with no swelling, redness, or edema. ENT: Nares patent. No nasal discharge, no septal abnormalities noted. Tympanic membranes are normal and external auditory canals are clear. Oropharynx with no redness, swelling, or masses, exudates, or evidence of obstruction, uvula midline. Mucous membranes moist. Neck: Trachea midline, no thyromegaly or masses palpated, and no cervical lymphadenopathy. Supple, full range of motion without nuchal rigidity, or vertebral point tenderness. No Meningismus. Chest/axilla: Normal chest wall appearance and motion. Nontender with no deformity. No lesions are appreciated. Cardiovascular: Regular rate and rhythm with a normal S1 and S2. No gallops, murmurs, or rubs. Normal PMI, no JVD. No pulse deficits. Respiratory: Lungs have equal breath sounds bilaterally, clear to auscultation and percussion. No rales, rhonchi or wheezes noted. No increased work of breathing, no retractions or nasal flaring. Abdomen/GI: Soft, non-tender, with normal bowel sounds. No distension or tympany. No guarding or rebound. No evidence of tenderness throughout. Back: No spinal tenderness. No costovertebral tenderness. Full range of motion. Male : Normal genitalia with no discharge or lesions. Skin: Warm, dry with normal turgor. Normal color with no rashes, no lesions, and no evidence of cellulitis. MS/ Extremity: Pulses equal, no cyanosis. Neurovascular intact. Full, normal range of motion. Neuro: Awake and alert, GCS 15, oriented to person, place, time, and situation. Cranial nerves II-XII grossly intact. Motor strength 5/5 in all extremities. Sensory grossly intact. Cerebellar exam normal. Normal gait. Psych: Awake, alert, with orientation to person, place and time. Behavior, mood, and affect are within normal limits. Vital Signs: 20:34 BP 107 / 65; Pulse 70; Resp 18; Temp 97.9(O); Pulse Ox 99% on R/A; Weight 89.36 kg; tw5 Height 5 ft. 11 in. (180.34 cm); Pain 3/10; 12/24 00:22 BP 110 / 74; Pulse 89; Resp 17; Pulse Ox 96% on R/A; ke1 12/23 20:34 Body Mass Index 27.48 (89.36 kg, 180.34 cm) tw5 MDM: 12/23 20:34 Patient medically screened. [facility] 21: Differential Diagnosis: cardiac arrhythmia. Data reviewed: vital signs, nurses notes, [facility] lab test result(s), EKG, radiologic studies, plain films. Data interpreted: groundwater monitoring technician: rate is 70 beats/min, rhythm is regular, Pulse oximetry: on room air is 99 %. Test interpretation: by ED physician or midlevel provider: ECG, plain radiologic studies. Counseling: I had a detailed discussion with the patient and/or guardian regarding: the historical points, exam findings, and any diagnostic results supporting the discharge/admit diagnosis, lab results, radiology results. 12/23 20:29 Order name: Basic Metabolic Panel; Complete Time: 21:51 [facility] 12/23 20:29 Order name: CBC with Diff; Complete Time: 21:51 [facility] 12/23 20:29 Order name: Troponin HS; Complete Time: 21:51 [facility] 12/23 21:15 Order name: Urine Dipstick-Ancillary; Complete Time: 21:51 [facility] 12/23 21:52 Order name: Chest Single View XRAY [facility] 12/23 21:54 Order name: SARS-COV-2 RT PCR (Document "Date of Onset" if Symptomatic) [facility] 12/23 20:29 Order name: EKG; Complete Time: 20:30 [facility] 12/23 20:29 Order name: Cardiac monitoring; Complete Time: 20:53 [facility] 12/23 20:29 Order name: EKG - Nurse/Tech; Complete Time: 20:53 [facility] 12/23 20:29 Order name: IV Saline Lock; Complete Time: 20:53 [facility] 12/23 20:29 Order name: Labs collected and sent; Complete Time: 20:53 [facility] 12/23 20:29 Order name: O2 Per Protocol; Complete Time: 20:53 12/23 20:29 Order name: O2 Sat Monitoring; Complete Time: 20:53 [facility] 12/23 21:02 Order name: Urine Dipstick-Ancillary (obtain specimen); Complete Time: 21: [facility] 12/23 22:07 Order name: CONS Physician Consult EDMS Administered Medications: 21:32 Drug: NS 0.9% 1000 ml Route: IV; Rate: 1 bolus; Site: left forearm; kd12/24 00:46 Follow up: Response: No adverse reaction; IV Status: Completed infusion 12/23 21:56 CANCELLED (Duplicate Order): Lovenox (enoxaparin) 1 mg/kg Sub-Q once mary kay 23:59 Drug: Lovenox (enoxaparin) 60 mg Route: Sub-Q; Site: left lower abdomen; kd3 12/24 00:45 Follow up: Response: No adverse reaction kd3 00:00 Drug: Aspirin Chewable Tablet 162 mg Route: PO; kd3 00:46 Follow up: Response: No adverse reaction kd3 00:00 Drug: Pepcid (famotidine) 20 mg Route: IVP; Site: left antecubital; kd3 00:46 Follow up: Response: No adverse reaction kd3 00:00 Drug: Xopenex (levalbuterol) 1.25 mg Route: Inhalation; kd3 00:46 Follow up: Response: No adverse reaction kd3 00:00 Drug: AtroVENT (ipratropium) Aerosol 0.5 mg Route: Inhalation; kd3 00:46 Follow up: Response: No adverse reaction kd3 Disposition Summary: 12/23/21 21:59 Hospitalization Ordered Hospitalization Status: Observation mary kay Provider: Alexandru Oliveira cha Location: Telemetry/MedSurg (observation) mary kay Condition: Stable mary kay Problem: new mary kay Symptoms: have improved mary kay Bed/Room Type: Standard mary kay Room Assignment: 221(12/24/21 00:11) ll1 Diagnosis - Weakness mary kay - COPD/ Chronic obstructive pulmonary disease, unspecified mary kay - Hypotension, unspecified - resolved mary kay - Unspecified kidney failure mary kay Forms: - Medication Reconciliation Form mary kay - SBAR form mary kay Signatures: Dispatcher [employer] EDAlex Dupree MD MD cha Lewis, Lynsay RN RN ll1 Wendy Pulido tw5 Katey Gabriel RN RN kd3 Corrections: (The following items were deleted from the chart) 12/23 21:56 21:56 Lovenox (enoxaparin) 1 mg/kg Sub-Q once ordered. mary kay muñiz 12/24 00:11 12/23 21:59 mary kay [facility]
--- NOTE | 2021-12-23 22:00 | ER ---
Nurse's Notes [facility] Name: Mookie Manning Age: 71 yrs Sex: Male : 1950 Arrival Date: 12/23/2021 Time: 20:04 Bed 7 Private MD: Diagnosis: Weakness;COPD/ Chronic obstructive pulmonary disease, unspecified;Hypotension, unspecified-resolved;Unspecified kidney failure Presentation: 12/23 20:27 Chief complaint: Patient states: "My blood pressure has been really low at home. I am tw5 just feeling ucky, and not well. Very fatigued.". Coronavirus screen: Vaccine status: Patient reports being unvaccinated. Ebola Screen: Patient negative for fever greater than or equal to 101.5 degrees Fahrenheit, and additional compatible Ebola Virus Disease symptoms Patient denies exposure to infectious person. Patient denies travel to an Ebola-affected area in the 21 days before illness onset. Initial Sepsis Screen:. Risk Assessment: Do you want to hurt yourself or someone else? Patient reports no desire to harm self or others. Onset of symptoms is unknown. 20:27 Acuity: LEIDA 2 tw5 20:27 Method Of Arrival: Wheelchair tw5 20:35 Initial Sepsis Screen: Does the patient meet any 2 criteria? No. Patient's initial tw5 sepsis screen is negative. Does the patient have a suspected source of infection? No. Patient's initial sepsis screen is negative. Triage Assessment: 20:28 General: Appears in no apparent distress. Behavior is calm, cooperative, appropriate tw5 for age. 12/24 00:45 Pain: Denies pain. kd3 Historical: - Allergies: 12/23 20:28 No Known Allergies; tw5 - Home Meds: 20:28 Hydrocodone-Acetaminophen Oral [Active]; losartan Oral [Active]; radiation therapy tw5 [Active]; ropinirole Oral [Active]; temazepam Oral [Active]; - PMHx: 20:28 Clear cell carcinoma; COPD; Osteoporosis; tw5 - Immunization history:: Flu vaccine is not up to date. - Social history:: Smoking status: Patient reports the use of cigarette tobacco products, smokes one pack cigarettes per day. - Family history:: not pertinent. Screenin/22 00:23 Abuse screen: Denies threats or abuse. Nutritional screening: No deficits noted. ke1 Tuberculosis screening: No symptoms or risk factors identified. Fall Risk None identified. Vital Signs: 12/23 20:34 BP 107 / 65; Pulse 70; Resp 18; Temp 97.9(O); Pulse Ox 99% on R/A; Weight 89.36 kg; tw5 Height 5 ft. 11 in. (180.34 cm); Pain 3/10; 12/24 00:22 BP 110 / 74; Pulse 89; Resp 17; Pulse Ox 96% on R/A; ke1 12/23 20:34 Body Mass Index 27.48 (89.36 kg, 180.34 cm) tw5 ED Course: 12/23 20:04 Patient arrived in ED. jj6 20:28 Triage completed. tw5 20:29 Arm band placed on. EKG completed in triage. Results shown to MD. EKG done per tw5 protocol. Performed by ED Staff. Labs ordered per protocol. Drawn by ED staff. 20:34 Alex Mustafa MD is Attending Physician. mary kay 20:53 Troponin HS Sent. mb7 20:53 CBC with Diff Sent. mb7 20:53 Basic Metabolic Panel Sent. mb7 20:53 EKG done, by ED staff, reviewed by Alex Mustafa MD. Inserted saline lock: 20 gauge in mb7 left forearm, using aseptic technique. Blood collected. 20:54 Bed in low position. Call light in reach. Side rails up X 1. Door closed. Noise mb7 minimized. Warm blanket given. 21:25 Katey Gabriel RN is Primary Nurse. kd3 21:57 Alexandru Oliveira MD is Hospitalizing Provider. mary kay 22:03 Assisted with urinal. [facility] 12/24 00:44 No provider procedures requiring assistance completed. Patient admitted, IV remains in kd3 place. Administered Medications: 12/23 21:32 Drug: NS 0.9% 1000 ml Route: IV; Rate: 1 bolus; Site: left forearm; kd3 12/24 00:46 Follow up: Response: No adverse reaction; IV Status: Completed infusion kd3 12/23 21:56 CANCELLED (Duplicate Order): Lovenox (enoxaparin) 1 mg/kg Sub-Q once mary kay 23:59 Drug: Lovenox (enoxaparin) 60 mg Route: Sub-Q; Site: left lower abdomen; kd3 12/24 00:45 Follow up: Response: No adverse reaction kd3 00:00 Drug: Aspirin Chewable Tablet 162 mg Route: PO; kd3 00:46 Follow up: Response: No adverse reaction kd3 00:00 Drug: Pepcid (famotidine) 20 mg Route: IVP; Site: left antecubital; kd3 00:46 Follow up: Response: No adverse reaction kd3 00:00 Drug: Xopenex (levalbuterol) 1.25 mg Route: Inhalation; kd3 00:46 Follow up: Response: No adverse reaction kd3 00:00 Drug: AtroVENT (ipratropium) Aerosol 0.5 mg Route: Inhalation; kd3 00:46 Follow up: Response: No adverse reaction kd3 Medication: 00:45 VIS not applicable for this client. kd3 Outcome: 12/23 21:59 Decision to Hospitalize by Provider. [facility] 12/24 00:45 Admitted to Med/surg room 221, Report called to jean-pierre kd3 Condition: stable Discharge instructions given to patient, Instructed on the need for admit, Demonstrated understanding of instructions. 00:51 Patient left the ED. kd3 Signatures: Alex Mustafa MD MD cha Waits, Michael mw1 Wendy Pulido tw5 Drea Araizaj6 Katey Gabriel RN RN kd3 Janna Crespo mb7 Giancarlo Aguilar RN RN ke1
[2021-12-23] MEDS ORDERED: ASPIRIN 81 MG CHEWABLE TABLET ONE (23:14)
[2021-12-23] MEDS ORDERED: ENOXAPARIN 60 MG/0.6 ML SQ ONE (23:15)
[2021-12-23] MEDS ORDERED: LEVALBUTEROL 1.25 MG/3 ML NEB ONE (23:15)
[2021-12-23] MEDS ORDERED: FAMOTIDINE 20 MG/2 ML VIAL IV ONE (23:15)
[2021-12-23] MEDS ORDERED: IPRATROPIUM BROM 0.5MG/2.5ML ONE (23:15)
[2021-12-24] MEDS ORDERED: ONDANSETRON 4 MG/2 ML VIAL IV PRN (00:58)
[2021-12-24] MEDS ORDERED: ACETAMINOPHEN 325 MG TABLET PO PRN (01:01)
[2021-12-24] MEDS: ALBUTEROL 2.5 MG/3 ML NEB SOL NEB SCH ×3 (02:00→14:31)
[2021-12-24] MEDS: IPRATROPIUM BROM 0.5MG/2.5ML NEB SCH ×3 (02:00→14:31)
[2021-12-24] MEDS ORDERED: ROPINIROLE HCL 1 MG TAB PO ONE (02:00)
[2021-12-24 02:13] VITALS: BMI 26.5
[2021-12-24 04:08] LABS: Absolute Lymphocytes (CBC) 2.5 K/uL (0.7-4.9); Lymphocytes % 33.3 % (15.3-44.8); MPV 8.5 fL (7.6-11.3); RBC Red Blood Cell Count 4.19 M/uL (4.33-5.43)
[2021-12-24] MEDS ORDERED: ENOXAPARIN 60 MG/0.6 ML SQ SCH (09:00)
[2021-12-24] MEDS ORDERED: ENOXAPARIN 80 MG/0.8 ML SQ SCH (09:00)
[2021-12-24] MEDS ORDERED: ASPIRIN EC 81 MG TAB PO SCH (09:00)
[2021-12-24] MEDS ORDERED: FAMOTIDINE 20 MG/2 ML VIAL IV SCH (09:00)
[2021-12-24 09:03] VITALS: O2SAT 97
[2021-12-24 12:45] VITALS: BP 138/78; TEMP 98.1
--- NOTE | 2021-12-24 16:36 | CON ---
Date of Consultation: 12/24/2021 Reason For Consultation: Hypotension and elevated troponin. History Of Present Illness: Mr. Manning has a history of COPD. He has a history of scapular destru ctive metastatic cancer for which he was getting immunotherapy, which has been held. He does have an appointment with Neuro-Oncology tomorrow. Recent MRI showed idiopathic hypertrophic pachymeningitis . Came in after began hypotensive without any cardiac symptoms and his troponin was mildly elevated at 174. Denied any chest pain, nausea, vomiting, diaphoresis, PND, orthopnea, pedal edema, palpitati ons, or syncope. In October 2021, he had a normal echo and a normal stress test in my office. Past Medical History: Includes COPD. Allergies: INCLUDE PENICILLIN. Review of Systems: Negative. Social History: Negative. Family History: Negative. Medications: At home include Spiriva and losartan with hydrochlorothiazide that he said he was not t aking, but I am not clear on that. Physical Examination: Vital Signs: Stable, afebrile. HEENT: Negative. Neck: Supple with no bruit. Chest: Clear to auscultation and percussion. Cardiac: Revealed a regular rhythm and rate. No murmurs, gallops, or rubs. Abdomen: Benign. Extremities: Revealed no clubbing, cyanosis, or edema. Diagnostic Data: As stated earlier. Impression And Plan: 1.Elevated troponin secondary to demand ischemia from hypotension. 2.Chronic obstructive pulmonary disease, stable. 3.Hypertension. I think we should hold the blood pressure medicine because of hypotension. 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 He has an appointment with Neuro-Oncology tomorrow. He can go home today. No antihypertensive. He ne eds to take a copy of the CD of the MRI with him. The case was discussed with Dr. Oliveira. [facility] cardiac workup at this point. NB/MODL Voice ID: [id number] Report ID: [id number]
[2021-12-24] MEDS ORDERED: ROPINIROLE HCL 1 MG TAB PO SCH (21:00)
--- NOTE | 2021-12-24 22:37 | HP ---
Date of Admission: 12/23/2021 The patient presented to the emergency room, saying he just felt really bad and just collapsed. Significant History: He states that he woke up that morning, took his blood pressure pill. An hour or so later, he felt really weak and difficulty walking. There was no pain. No shortness of breath. Blood pressure, however, was recorded as 80s/60s. This was repeated throughout the day, and he con tinued to have the same reading. He was therefore presented to the emergency room, where he had an e levated troponin. Possibility of being cardiac in origin was therefore considered, even though he turcios d a negative echo and stress test approximately 1 month ago. By the time he got to the hospital, his blood pressure was somewhat better and remained elevated after being bolused at around the 100 bk. The next day, his blood pressure was stable at 120, and he said he felt back to normal. This was o bviously without the blood pressure pill. The workup other than the elevated troponin was negative, slightly elevated creatinine; however, discussion of the case with Dr. Atkins suggested the possibil ity of the increased enzyme level secondary to significant hypotension. He is also slated to see [place] ro/oncologist as he had some possibility of being in peculiar type of meningitis approximately a gretel h ago, at which time a tap was done, and MRI was done a couple weeks ago, which did show what was fel t to be a possibility of idiopathic hypertrophic pachymeningitis. His oncologist has been treating f or shoulder cancers and referred him to the new oncologist whom he has an appointment with in the [facility]. Since he was stable and felt back to normal, it was felt that he could be discharged to [facility] on his usual medication without the use of his blood pressure. Monitor his blood pressure and rep ort back to either myself or Dr. Atkins at the end of the week. He was discharged in good condition . Final Diagnoses: Hypotension resulting in abnormal troponin level; shoulder cancer, by history; hype rtension, poor control. HR/MODL Voice ID: [id number]
--- NOTE | 2021-12-25 11:27 | RAD REPORT ---
EXAM DESCRIPTION: RAD - Chest Single View - 12/23/2021 10:36 pm CLINICAL HISTORY: COUGH COMPARISON: None. FINDINGS: Single frontal radiograph view of the chest. Cardiomediastinal silhouette: Atherosclerotic calcification of thoracic aorta. Heart is not enlarged. Lungs: No consolidation, pneumothorax, or pleural effusion. Bones: Severe degenerative change of the right shoulder. Mild endplate spondylosis. Upper abdomen: No abnormality identified. IMPRESSION: 1. No acute pneumonic process identified. Electronically signed by: Micheal Mendoza 12/23/2021 10:53 PM CDT Due to temporary technical issues with the PACS/Fluency reporting system, reports are being signed by the in house radiologist without review as a courtesy to ensure prompt reporting. The interpreting r adiologist is fully responsible for the content of the report.
--- NOTE | 2021-12-25 11:27 | EKG ---
Test Date: 2021-12-23 Test Time: 20:20:49 Emergency Veterinary Assistant: MAYNOR MEASUREMENT RESULTS: Intervals: Rate: 74 MS: 284 QRSD: 92 QT: 452 QTc: 501 [place]: P: 55 MS: 284 QRS: 57 T: 60 INTERPRETIVE STATEMENTS: Sinus tachycardia with 1st degree AV block with blocked premature atrial complexes with premature supraventricular complexes Prolonged QT Abnormal ECG Compared to ECG 06/13/2021 15:07:44 Atrial premature complex(es) now present First degree AV block now present Prolonged QT interval now present Sinus rhythm no longer present Electronically Signed On 12-25-21 11:23:42 CDT by Yaw Atkins
== END 2021-12-24 15:00 | disposition home or self-care (01) ==
LOC: ER 20:02 → ERHOLD 22:01 → 2ND 12-24 00:32
PROVIDERS: ADMIT Family Medicine; ATTEND Family Medicine
DX: I95.9 Hypotension, unspecified (principal); I24.8 Other forms of acute ischemic heart disease; I10 Essential (primary) hypertension; J44.9 Chronic obstructive pulmonary disease, unspecified; G03.9 Meningitis, unspecified; C40.00 Malignant neoplasm of scapula and long bones of unspecified upper limb; M81.0 Age-related osteoporosis without current pathological fracture; F17.210 Nicotine dependence, cigarettes, uncomplicated; Z79.899 Other long term (current) drug therapy; Z88.0 Allergy status to penicillin; Z20.822 Contact with and (suspected) exposure to COVID-19
CPT/HCPCS: 96361; 93005; 85025 ×2; 80048 ×2; 36415; 81003; 84484; 71045; 94640; 96372; 96374; 99285; U0003; J1650; J7030; J3490 ×2; G0378 ×2

== ENCOUNTER 2022-05-27 02:09 | Observation (INO) | payer OTHER ==
--- OUTSIDE RECORDS SUMMARY | 2022-05-27 02:14 | XMS REPORT | Continuity of Care Document ---
:1950 Author Organization [facility] t Address [address] [place] [address] Care Team Providers Name Role Phone Unknown, Physician Primary Care Physician Unavailable Cheryl Oliveira Attending Clinician Unavailable TIAN BENITO Attending Clinician Unavailable YANETH FERGUSON Attending Clinician Unavailable CHERYL OLIVEIRA Attending Clinician Unavailable MANPREET KOEHLER Attending Clinician Unavailable Manpreet Koehler Attending Clinician Qian Cueto Attending Clinician MARIAELENA CASH Admitting Clinician Unavailable Mariaelena Cash Admitting Clinician Qian Cueto Admitting Clinician Payers Payer Name Policy Type Policy Number Effective Date Expiration Date Demetris newton [facility] MARIUM [id number] 2021 00:00:00 2024 00:0 0:00 Problems Condition Condition Condition Status Onset Resolution Last Treating Co mments Source Name Details Category Date Date Treatment Clinician Date Lung Lung Disease Active [place] [facility] cancer 12-25 [facility] 00:00: 00 Renal Renal Disease Active Overview: [place] cancer cancer 12-25 [facility] 00:00: g of this 00 note might be different from the original. 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/p nephrecto my for clear renal cell carcinoma in 2009 [id number] m, [id number] nt disease with a huge oligometa static lesion invading into the right side scapulaHe completed ablative XRT but there is concern for residual disease Has been on Pazopanib since 10/2019 and toleratin g wellNo new disease /or progressi on on serial scans including current PET scan shows NO activityD estructiv e left scapula changes is chronic Renal mass Renal mass Disease Active [facility] 12-25 Health 00:00: 00 Syncope Syncope Disease Active [facility] 12-25 [facility] 00:00: 00 Hypertensi Hypertensi Disease Active [facility] on on 12-25 Health 00:00: 00 Subdural Subdural Disease Active Overview: [place] hematoma hematoma 12-25 [facility] 00:[facility]: g of this 00 note might be different from the original. Syncope, not seizure suspected as initial cause of subdural hematoma found 09/2021Las t Assessmen t & Plan: Formattin g of this note might be different from the original. New MRI shows less mass effect from chronic subdural, but increased meningeal enahnceme ntEtiolog y of enhancmen et is thought to be secondary to the subdural, not malignanc y. No parenchym al disease seenPlan followup MRI brain with and without contrast with 3D post-cont rast T1 for reassessm ent of dural enhanceme nt and evoluatio n of hematoma SAH SAH Diagnosis Active 2021-09-25 Mem oria Active 09-19 12:13:00 l 09/19/2021 00:00: Jeffery BRIDGES [address] 805.4 - FX 805.4 - Diagnosis Active 2014-03-26 Memoria LUMBAR FX LUMBAR 10-27 12:48:00 l VERTE VERTE 00:01: Luis Active 00 10/27/2013 YULIANA Smith L1 SPINE L1 SPINE Diagnosis Active 2013-10-13 Memoria FX ACUTE FX ACUTE 10-10 18:37:00 l PAIN PAIN 00:00: [place] Active 00 10/10/2013 [facility] ACUTE ACUTE Diagnosis Active 2013-0 2013-10-10 Mem oria COMPRESSIO COMPRESSIO 3-08 21:34:00 l N N 00:00: Luis FRACTURE-L FRACTURE-L 00 1 1 VERTEBRAE VERTEBRAE Active 10/10/2013 [facility] Pain in Pain in Diagnosis Active Commo n joint of joint of Spirit right right - [facility] shoulder shoulder [facility] Adhesive Adhesive Diagnosis Active Com mon capsulitis capsulitis Sp zeinab of right of right - [facility] shoulder shoulder [facility] Chronic Chronic Problem Active 2021-09-25 Me moria obstructiv obstructiv 23:10:06 l e lung e lung Luis disease disease (disorder) (disorder) Active Problem 09/25/2021 [facility] Dizziness Dizziness Problem Active 2021-09-25 Memoria (finding) (finding) 23:10:06 l Active [place] Problem 09/25/2021 [facility] Kidney Kidney Problem Active 2021-09-25 Mem oria disease disease 23:10:06 l (disorder) (disorder) Christopher gamaann Active Problem 09/25/2021 [facility] Headache Headache Problem Resolve 2021-09-25 Memoria (finding) (finding) d 23:10:06 l Resolved Luis Problem 09/25/2021 [facility] History of Past Illness Condition Condition Condition Status Onset Resolution Last Treating Co mments Source Name Details Category Date Date Treatment Clinician Date Dizziness Dizziness Problem 2021-0 2021-09-25 2021-09-25 Memoria and and 09-23 23:10:06 23:10:06 l giddiness giddiness 20:18: Herm thao 09/23/2021 00 09/25/2021 [facility] Headache, Headache, Problem 2021-0 2021-09-25 2021-09-25 Memoria unspecifie unspecifie 09-23 23:10:06 23:10:06 l d d 20:17: Luis 09/23/2021 00 [facility] Nontraumat Nontrauma Problem 2021-0 2021-09-25 2021-09-25 Memoria ic tic 09-23 23:10:06 23:10:06 l subarachno subarachno 20:17: He geena id id 00 hemorrhage hemorrhage , , unspecifie unspecifie d d 09/23/2021 09/25/2021 [facility] Allergies, Adverse Reactions, Alerts Allergy Allergy Status Severity Reaction(s) Onset Inactive Treating Comm ents Source Name Type Date Date Clinician penicill Adverse Active Info Not Commo n in Reaction Available [facility] - [facility] penicill penicill Active Memori a ins ins l Luis Social History Social Habit Start Date Stop Date Quantity Comments Source Exposure to Not sure [facility] SARS-CoV-2 (event) History of tobacco Cigarette Smoker [facility] use Cigarettes smoked 2021-12-25 2021-12-25 [facility] current (pack per 00:00:00 00:00:00 day) - Reported Tobacco use and 2021-12-25 2021-12-25 Smokeless tobacco [facility] exposure 00:00:00 00:00:00 non-user Alcohol intake 2021-12-25 2021-12-25 Lifetime [facility] 00:00:00 00:00:00 non-drinker (finding) Social History 2021-09-20 2021-09-20 [facility] 01:30:17 01:30:17 Sex Ass[birth year] [facility] 00:00:00 00:00:00 Smoking Status Start Date Stop Date Source Smokes tobacco daily 2021-12-25 00:00:00 [facility] Medications Ordered Filled Start Stop Current Ordering Indication Dosage Frequency Signature Comments Components Source Medication Medication Date Date Medication? Clinician (SIG) Name Name HYDROcodone Yes 10mg{hy Take 10 mg [facility] -acetaminop 5-23 drocodo of Healt [facility] hen (Hycet) 10:21: ne} hydrocodon 5-217 14 e by MG/10ML mouth. solution rOPINIRole Yes not [place] (Requip) 3 5-23 defined Health MG tablet 10:21: 13 tiotropium Yes 18ug Take 18 UT (Spiriva) 5-23 mcg by Health 18 MCG 10:21: mouth. inhalation 13 capsule losartan-hy Yes 1{tbl} QD Take 1 UT droCHLOROth 5-03 tablet by rasta [facility] 00:00: mouth 1 (Hyzaar) 00 (one) time 100-25 MG each day. tablet meclizine Yes CHEW AND UT (Antivert) 4-19 SWALLOW 1 Heal th 25 MG 00:00: TABLET BY tablet 00 MOUTH THREE TIMES DAILY NEEDED rOPINIRole Yes 1mg Take 1 mg [place] (Requip) 1 4-19 by mouth Healt h MG tablet 00:00: every 00 night. 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 Losartan No 50 mg, 1 Memor ia 2-20 tab, l 15:00: Route: PO, Luis 00 Drug form: TAB, Daily, Dosing Weight 92.6, kg, Start date: 09/24/21 9:00:00 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, Duration: 30 day, Stop date: 10/23/21 9:00:00 CDT losartan 50 0 Yes 100 mg = 2 Memoria mg oral 2-19 tab, PO, l tablet 20:48: Daily, # [place] 00 60 tab, 1 Refill(s), Pharmacy: [facility] #[id number], 180.34, cm, 09/19/21 19:27:00 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, Height, 92.6, kg, 09/19/21 19:27:00 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, Weight temazepam Yes 15 mg = 1 Mem oria 15 mg oral 2-19 cap, PO, l capsule 20:33: Bedtime, Jeffery n 00 PRN Sleep, 0 Refill(s) Acetaminoph Yes 1 tab, PO, Memoria en 325 MG / 2-19 Q6H, PRN l Hydrocodone 20:31: Pain Score Luis Bitartrate 00 7-10, 0 5 MG Oral Refill(s) Tablet meclizine Yes 25 mg = 1 Mem oria 25 mg oral 2-19 tab, PO, l tablet 20:31: BID, PRN [place] 00 for dizziness, X 30 day, # 60 tab, 1 Refill(s), Pharmacy: [facility] #[id number], 180.34, cm, 09/19/21 19:27:00 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 (Same as: Tylenol Extra Strength) Oxycodone No Notes: Memori a Hydrochlori 2-19 (Same as: l de 5 MG 00:22: Roxicodone Herm thao Oral Tablet 00 ) Hydromorpho No Notes: Urbano lemuel ne 2-19 Same as l 00:22: Dilaudid Luis 00 Flumazenil No Notes: Memor ia 2-19 (Same as: l 00:22: Romazicon) Luis 00 Naloxone No Notes: Memoria 2-19 Same as l 00:22: Narcan [place] 00 Ondansetron No Notes: Urbano lemuel 2-19 (Same as: l 00:22: Zofran) MEDICATION WASTE Product Size: 4 mg Product Wasted: ___ mg Meclizine No Notes: Memori a 2-18 (Same as: l 19:00: Antivert) Hydroxyzine No Notes: Urbano lemuel 2-17 (Same as: l 20:27: Vistaril) Ketorolac No Notes: Me moria 2-17 MEDICATION l 20:27: WASTE Product Size: 30 mg Product Wasted: _0__ mg Solu-Medrol No Notes: Urbano lemuel 2-17 (Same l 20:27: as:Solu-ME DROL, A-Methapre d) MEDICATION WASTE Product Size: 500 mg Product Wasted: _250__ mg Reglan No Notes: Memoria 2-17 (Same as: l 20:27: Reglan) Calcium No 500 mL, Memoria Chloride 2-17 500 ml/hr, l 0.0014 20:27: Infuse Luis MEQ/ML / 00 Over: 1 Potassium hr, Route: Chloride IV, 500, 0.004 Drug form: MEQ/ML / INJ, ONCE, Sodium Priority: Chloride NOW, 0.103 Dosing MEQ/ML / Weight Sodium 92.6 kg, Lactate Start 0.028 date: MEQ/ML 09/21/21 Injectable 14:27:00 Solution 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, Stop date: 09/21/21 14:27:00 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, 0 pazopanib No 800 mg, Memor ia 200 MG Oral 2-17 Route: PO, l Tablet 15:00: Drug form: Jolene nn [Votrient] 00 TAB, Daily, Dosing Weight 92.6, kg, Start date: 09/21/21 9:00:00 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 ropinirole No Notes: Memor ia 2-17 (Same as: l 07:30: Requip) ropinirole No Notes: Memor ia 2-17 (Same as: l 03:00: Requip) Luis heparin No Notes: Memoria 2-16 porcine l 22:00: heparin Roxicodone No Notes: Memor ia 2-16 (Same as: l 21:06: Roxicodone ) chlorhexidi No Notes: Urbano lemuel ne 2-16 (Same As: l gluconate 15:00: Peridex) Herm thao 1.2 MG/ML 00 Mouthwash Saline No Notes: Memoria Flush 0.9% 2-16 (Same as: l 15:00: BD Luis 00 Posiflush) Losartan No Notes: Memoria 2-16 (Same as: l 15:00: Cozaar) [place] 00 sennosides, No Notes: Urbano lemuel CORRECTION 2-16 (Same as: l 15:00: Senokot) Albuterol No Notes: SEE Me moria 0.83 MG/ML 2-16 RT l Inhalant 08:55: DOCUMENTAT Her mata Solution 00 ION (Same as: Proventil) ropinirole No Notes: Memor ia 2-16 (Same as: l 07:30: Requip) [place] Saline No Notes: Memoria Flush 0.9% 2-16 (Same as: l 06:30: BD Luis 00 Posiflush) Insulin No Notes: Memoria regular 2-16 (Same as: l 06:30: Humulin R) Roll in palms of hands gently; Do not shake vigorously . 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, 0 Acetaminoph Yes 1 tab, PO, Memoria en 325 MG / 3-10 Q4H, for l Hydrocodone 18:10: pain, # 24 [place] Bitartrate 00 tab, 0 10 MG Oral Refill(s) Tablet [Russell 10/325] levofloxaci Yes 750 mg = 1 Memoria n 750 mg 3-10 tab, PO, l oral tablet 18:00: [id number], # [place] 00 6 tab, 0 Refill(s) Docusate Yes 1 tab, PO, Mem oria Sodium 50 3-10 BID, # 60 l MG / 18:00: tab, 0 Luis sennosides, 00 Refill(s) CORRECTION 8.6 MG Oral Tablet cyclobenzap Yes 10 mg = 1 M emoria rine 10 mg 3-10 tab, PO, l oral tablet 18:00: Q8H, Jeffery n 00 Spasm, # 30 tab, 0 Refill(s) Levofloxaci 2013- No 750 mg, 1 M emoria n 3-10 tab, l 17:00: Route: PO, Drug form: TAB, [id number], Dosing Weight 89.091, kg, Start date: 10/12/13 12:00:00, Duration: 30 day, Stop date: 11/10/13 12:00:00Do not give w/antacids , dairy pdt & minerals Take 1 hr before or 2 hr after dairy products Docusate No 1 tab, Memoria Sodium 50 3-10 Route: PO, l MG / 14:00: Drug Form: Luis sennosides, 00 TAB, CORRECTION 8.6 MG Dosing Oral Tablet Weight 89.091, kg, BID, Start date: 10/12/13 9:00:00, Duration: 30 day, Stop date: 11/10/13 17:00:00(S michael as Senokot-S) Equiv. to Zoey-Colac e. Nicotine No 21 mg, 1 Memor ia 3-10 patch, l 01:00: Route: TOP, Drug form: ERFILM, Q24H, Dosing Weight 89.091, kg, Start date: 10/11/13 20:00:00, Duration: 30 day, Stop date: 11/09/13 20:00:00(S michael as: Habitrol) "Remove old patch before applicatio n of new patch" normal No 1,000 mL, Memori a saline 0.9% 3-09 Rate: 100 l IV 1,000 mL 23:22: ml/hr, Infuse over: 10 hr, Route: IV, Dosing Weight 89.091 kg, Total Volume: 1,000, Start date: 10/11/13 18:22:00, Duration: 30 day, Stop date: 11/10/13 18:21:00 Morphine No 2 mg, 1 Memori a 3-09 mL, Route: l 22:32: IVP, Drug form: INJ, Q6H, Dosing Weight 89.091, kg, PRN Pain Score 6-10, Start date: 10/11/13 17:32:00, Duration: 30 day, Stop date: 11/10/13 17:31:00(S michael as:MORPhin e Sulfate) Magnesium No 2 gm, 50 Urbano lemuel Sulfate 3-09 mL, Route: l 22:31: IVPB, Drug [place] 00 form: INJ, ONCE, Dosing Weight 89.091, kg, Total dose = 2 gm, Start date: 10/11/13 17:31:00, Duration: 1 doses or times, Stop date: 10/11/13 17:31:00 tiotropium No 18 Memoria 0.018 3-09 microgram, l MG/ACTUAT 14:00: 1 Luis Inhalant 00 inhalation Powder , Route: [Spiriva] INHALATION , Drug form: CAP, Daily, Dosing Weight 89.091, kg, Start date: 10/11/13 9:00:00, Duration: 30 day, Stop date: 11/09/13 9:00:00(Sa me As: Spiriva). heparin No 5,000 Memoria sodium, 3-09 unit, 1 l porcine 13:00: mL, Route: Herm thao 2500 UNT/ML 00 SUB-Q, Injectable Drug form: Solution INJ, Q8H, Dosing Weight 89.091, kg, Start date: 10/11/13 8:00:00, Duration: 30 day, Stop date: 11/10/13 0:00:00por cine heparin tiotropium Yes 18 Memoria 0.018 3-09 microgram l MG/ACTUAT 07:22: = 1 ea, Jolene nn Inhalant 00 INHALATION Powder , Daily, 0 [Spiriva] Refill(s) Flexeril No 10 mg, 1 Memor ia 3-09 tab, l 05:50: Route: PO, Luis 00 Drug form: TAB, Q8H, Dosing Weight 89.091, kg, PRN Spasm, Start date: 10/10/13 23:50:00, Duration: 30 day, Stop date: 11/09/13 23:49:00(S michael As: Flexeril) Acetaminoph No 1 tab, Urbano lemuel en 325 MG / 3-09 Route: PO, l Hydrocodone 05:50: Drug Form: [place] Bitartrate 00 TAB, 10 MG Oral Dosing Tablet Weight 89.091, kg, Q4H, PRN Pain Score 1-5, Start date: 10/10/13 23:50:00, Duration: 30 day, Stop date: 11/09/13 23:49:00Do not exceed 4gm/day of acetaminop hen. (Same as: Russell 325/10) Docusate 2013-0 No 100 mg, 1 Urbano lemuel 3-09 cap, l 05:50: Route: PO, [place] 00 Drug form: CAP, BID, Dosing Weight 89.091, kg, PRN Constipati on, Start date: 10/10/13 23:50:00, Duration: 30 day, Stop date: 11/09/13 23:49:00(S michael as: Colace) (Do Not Crush) Morphine 2013-0 No 2 mg, 1 Memori a 3-09 mL, Route: l 05:50: IVP, Drug form: INJ, Q3H, Dosing Weight 89.091, kg, PRN Pain Score 6-10, Start date: 10/10/13 23:50:00, Duration: 30 day, Stop date: 11/09/13 23:49:00(S michael as:MORPhin e Sulfate) Ondansetron 2013-0 No 4 mg, 2 Mem oria 3-09 mL, Route: l 05:50: IVP, Drug form: INJ, Q8H, Dosing Weight 89.091, kg, PRN Nausea & Vomiting, Start date: 10/10/13 23:50:00, Duration: 30 day, Stop date: 11/09/13 23:49:00(S michael as: Zofran) Morphine 2013-0 No 4 mg, 1 Memori a 3-09 mL, Route: l 05:20: IVP, Drug form: INJ, ONCE, Dosing Weight 89.091, kg, Priority: STAT, Start date: 10/10/13 23:20:00, Stop date: 10/10/13 23:20:00(S michael as:MORPhin e Sulfate) Morphine 2013-0 No 4 mg, 1 Memori a 3-09 mL, Route: l 05:15: IVP, Drug form: INJ, ONCE, Dosing Weight 89.091, kg, Priority: STAT, Start date: 10/10/13 23:15:00, Stop date: 10/10/13 23:15:00(S michael as:MORPhin e Sulfate) Ondansetron 2013-0 No 4 mg, Memor ia 10-11 Route: l 02:13: IVP, ONCE, [place] 00 Dosing Weight 89.091, kg, Priority: STAT, Start date: 10/10/13 20:13:00, Stop date: 10/10/13 20:13:00 Sodium 2013-0 No 1,000 mL, Memori a Chloride 10-11 Rate: l 0.9% 02:13: 1,000 Luis (Bolus) IV 00 ml/hr, 1000 mL Infuse over: 1 hr, Route: IV, Dosing Weight 89.091 kg, Total Volume: 1,000, Priority: STAT, Start date: 10/10/13 20:13:00, Duration: 1 doses or times, Stop date: 10/10/13 21:12:00 Saline 2013-0 No 5 mL, Memoria Flush 0.9% 10-11 Route: l 02:13: IVP, Drug Form: INJ, Dosing Weight 89.091, kg, PRN, PRN Line Flush, Start date: 10/10/13 20:13:00, Duration: 30 day, Stop date: 11/09/13 21:12:00(S michael as: BD Posiflush) Morphine 2013-0 No 4 mg, Memoria 10-11 Route: l 02:13: IVP, ONCE, Luis 00 Dosing Weight 89.091, kg, Priority: STAT, Start date: 10/10/13 20:13:00, Stop date: 10/10/13 20:13:00 Losartan Losartan Yes Simon not Comm on Potassium Potassium Hassan defined Sp zeinab [facility] Ropinirole Ropinirole Yes Simon not Common HCl HCl Hassan defined [facility] Hydrocodone Hydrocodone Yes Simon not Common -Acetaminop -Acetaminop Hassan defined [facility] Temazepam Temazepam Yes Simon not Co mmon Hassan defined [facility] Vital Signs Vital Name Observation Time Observation Value Comments Source Systolic blood 2021-12-25 15:04:00 148 mm[Hg] [facility] Diastolic blood 2021-12-25 15:04:00 81 mm[Hg] [facility] Heart rate 2021-12-25 15:04:00 71 /min [facility] Body temperature 2021-12-25 15:04:00 36.72 Astrid [facility] Body height 2021-12-25 15:04:00 180.3 cm [facility] Body weight 2021-12-25 15:04:00 87.363 kg [facility] BMI 2021-12-25 15:04:00 26.86 kg/m2 [facility] Respitory Rate 2021-09-23 21:00:00 Memori al [place] Respitory Rate 2021-09-23 20:00:00 Memori al Luis Respitory Rate 2021-09-23 19:00:00 Memori al [place] Systolic (mm Hg) 2021-09-23 19:00:00 Urbano rial Luis Diastolic (mm Hg) 2021-09-23 19:00:00 Mem orial [place] Temperature Oral (F) 2021-09-23 17:48:47 98.5 F [facility] [place] Systolic (mm Hg) 2021-09-23 15:00:00 Urbano rial Luis Diastolic (mm Hg) 2021-09-23 15:00:00 Mem orial [place] Systolic (mm Hg) 2021-09-23 14:00:00 Urbano rial Luis Diastolic (mm Hg) 2021-09-23 14:00:00 Mem orial Luis Temperature Oral (F) 2021-09-23 13:42:10 98.4 F [facility] [place] Temperature Oral (F) 2021-09-23 02:34:49 98.8 F [facility] [place] Heart Rate 2021-09-20 22:25:27 Memorial Luis Heart Rate 2021-09-20 17:38:19 Memorial Luis Heart Rate 2021-09-20 14:06:57 [facility] [place] Height 2021-09-20 01:27:00 180.34 cm [facility] [place] Weight 2021-09-20 01:27:00 [facility] [place] BMI Calculated 2021-09-20 01:27:00 Memori al [place] Heart Rate 2013-10-12 16:30:00 [facility] [place] Respitory Rate 2013-10-12 16:30:00 Memori al [place] Systolic (mm Hg) 2013-10-12 16:30:00 Urbano rial [place] Diastolic (mm Hg) 2013-10-12 16:30:00 Mem orial [place] Temperature Oral (F) 2013-10-12 16:30:00 97.1 F Memorial Luis Diastolic (mm Hg) 2013-10-12 12:00:00 Mem orial Luis Systolic (mm Hg) 2013-10-12 12:00:00 Urbano rial [place] Temperature Oral (F) 2013-10-12 12:00:00 97.4 F [facility] [place] Respitory Rate 2013-10-12 12:00:00 Memori al [place] Heart Rate 2013-10-12 12:00:00 Memorial Luis Systolic (mm Hg) 2013-10-12 08:16:00 Urbano rial [place] Diastolic (mm Hg) 2013-10-12 08:16:00 Mem orial [place] Temperature Oral (F) 2013-10-12 08:16:00 98.5 F [facility] [place] Heart Rate 2013-10-12 08:16:00 Memorial Luis Respitory Rate 2013-10-12 08:16:00 Memori al [place] Height 2013-10-11 01:49:00 182.88 cm Memorial Luis Weight 2013-10-11 01:49:00 [facility] [place] BMI Calculated 2013-10-11 01:49:00 Memori al [place] Procedures Procedure Date / Time Performed Performing Clinician [facility] e Spinal puncture, lumbar, 2021-09-22 19:45:00 Mem orial [place] diagnostic; with fluoroscopic or CT guidance Kidney operation Memorial Jeffery n Encounters Start End Encounter Admission Attending Care Care Encounter Source Date/Time Date/Time Type Type Clinicians Facility Department ID 2022-04-06 Outpatient Roxanne [facility] [id number] 2 Common 10:03:00 Cheryl [id number] [facility] 2022-03-21 Outpatient [facility] [id number] [place] 08:44:09 [id number] [facility] 2022-01-11 Outpatient [facility] [id number] [place] 13:05:53 [id number] [facility] 2021-12-25 Outpatient BENITO, [facility] [id number] [place] 09:51:27 SIGMUND [id number] [facility] 2021-12-22 Outpatient [facility] [id number] [place] 08:00:30 [id number] [facility] 2021-12-19 Outpatient BENITO, [facility] [id number] [place] 14:33:[id number] [place] [address] 2021-10-02 Outpatient Roxanne, [facility] [id number] 2 Common 14:47:01 Cheryl [facility] 2021-08-30 Outpatient Roxanne, [facility] [id number] 2 Common 14:40:35 Cheryl [facility] 2021-08-30 Outpatient Roxanne, [facility] [id number] 2 Common 12:00:00 Cheryl [facility] 2021-08-30 Outpatient Roxanne, [facility] [id number] 2 Common 11:20:28 Cheryl [id number] [facility] 2022-05-15 2022-05-15 Emergency ER PHYLLIS, [facility] [id number] [place] 02:58:00 05:25:00 YANETH [id number] [facility] 2022-05-11 2022-05-11 Outpatient EL ROXANNE, [facility] [id number] [place] 15:15:00 15:15:00 CHERYL -[id number] [facility] 2022-03-27 2022-03-27 Outpatient BENITO, [facility] [id number] [place] 14:30:00 14:30:00 [facility] 2021-12-25 2021-12-25 Consult Benito, [facility] [id number] [place] 10:00:00 11:20:[address] [id number] [facility] [id number] 2021-09-20 2021-09-23 Inpatient [facility] [id number] Memoria 01:02:00 22:11:00 r Luis [facility] 2021-09-19 2021-09-23 Inpatient U ZAKIA, [facility] 2045 [facility] 19:02:00 16:11:00 MANPREET 2021-09-19 2021-09-23 [facility] [id number] 19:02:00 16:11:00 Manpreet [facility] 2021-09-19 2021-09-23 Outpatient [facility] [id number] 19:02:00 16:11:00 Manpreet Dial 48 2019-03-27 2019-03-27 [id number] Common 09:30:00 09:30:00 [facility] 2013-10-11 2013-10-12 OBS [facility] [id number] [id number] Memoria 01:49:00 19:20:00 Observatio maryann Smith [id number] [address] 2013-10-10 2013-10-12 Outpatient Rom, [id number] 19:49:00 14:20:00 Qian [id number] Results Test Description Test Time Test Comments Results Result Comments Source BODY FLUIDS 2021-09-22 20:01:00 Test Item Value Reference Range Interpretation Comme nts Nucleated Cells CSF (test code 6 See_Comment [Automated message] The system which = Nucleated Cells CSF) gener ated this result transmitted reference range : <=53. The reference range was not u sed to interpret this result as barry l/abnormal. [facility]2022-02-18 20:01:00 Test Item Value Reference Range Interpretation Comments RBC CSF (test code = 4050 See_Comment [Autom ated message] The RBC CSF) system which ge nerated this result transmit jeniffer reference range : <=03. The reference range was not used to interpr et this result as barry l/abnormal. [facility] [id number] 20:01:00 Test Item Value Reference Range Interpretation Comments Neutrophils CSF (test 0 See_Comment [Auto mated message] The code = Neutrophils CSF) syst em which generated this result tra nsmitted reference range : <=6. The reference r jus was not used to int erpret this result as normal/abnormal . [facility] [id number] 20:01:00 Test Item Value Reference Range Interpretation Comments Lymph CSF (test code = Lymph CSF) 71 40-80 [facility] [id number] 20:01:00 Test Item Value Reference Range Interpretation Comments Monocyte CSF (test code = Monocyte CSF) 29 15-45 [facility] [id number] 20:01:00 Test Item Value Reference Range Interpretation Comments LDH CSF (test code = LDH CSF) 44 [facility] [id number] 20:01:00 Test Item Value Reference Range Interpretation Comments Glucose Lvl (test code = Glucose Lvl) 70 70-99 [facility] HospitalGram Stain Dwdndu2660-19-29 20:01:00 Test Item Value Reference Range Interpretation Comments Gram Stain Report Gram Stain Performed By: (test code = Gram [facility] St[facility]) [facility] w/Gram [id number] 20:01:00 Test Item Value Reference Range Interpretation Comments Culture: CSF w/Gram 48 Hour Report - No Stain (test code = Growth, Holding Culture: CSF w/Gram Stain) [facility]2022-02-18 20:01:00 Test Item Value Reference Range Interpretation Comments Tube Num CSF (test code = Tube Num CSF) 1 1 [facility] [id number] 20:01:00 Test Item Value Reference Range Interpretation Comments Color CSF (test code Xanthoch 2*ABN*(09/22/21 = Color CSF) 2:01 PM) [facility]2022-02-18 20:01:00 Test Item Value Reference Range Interpretation Comments Clarity CSF (test code Slight *ABN*(09/22/21 = Clarity CSF) 2:01 PM) [facility]2022-02-18 20:01:00 Test Item Value Reference Range Interpretation Comments Supernat CSF (test code Xanthoch = Supernat CSF) 4*ABN*(09/22/21 2:01 PM) [facility] [id number] 20:01:00 Test Item Value Reference Range Interpretation Comments Nucleated Cells CSF 3 See_Comment [Automa jeniffer message] The (test code = Nucleated syste m which generated Cells CSF) this result tra nsmitted reference range : <=53. The reference r jus was not used to int erpret this result as normal/abnormal . [facility] Hospital[facility]weet[facility] [id number] 20:01:00 Test Item Value Reference Range Interpretation Comments RBC CSF (test code = 4150 See_Comment [Autom ated message] The RBC CSF) system which ge nerated this result transmit jeniffer reference range : <=03. The reference range was not used to interpr et this result as barry l/abnormal. [facility] MediaTVHVBN9328-64-00 20:01:00 Test Item Value Reference Range Interpretation Comments Comment CSF (test Differential not code = Comment CSF) performed on WBC count of less than 5. [facility] [id number] 20:01:00 Test Item Value Reference Range Interpretation Comments Glucose CSF (test code = Glucose CSF) 57 45-80 [facility] Hospitaltweet[facility] [id number] 20:01:00 Test Item Value Reference Range Interpretation Comments Protein CSF (test code = Protein CSF) 81 15-45 [facility] Hospitaltweet[facility] [id number] 20:01:00 Test Item Value Reference Range Interpretation Comments Tube Num CSF (test code = Tube Num CSF) 4 1 [facility] [id number] 20:01:00 Test Item Value Reference Range Interpretation Comments Color CSF (test code Xanthoch 3*ABN*(09/22/21 = Color CSF) 2:01 PM) [facility] [id number] 20:01:00 Test Item Value Reference Range Interpretation Comments Clarity CSF (test code Slight *ABN*(09/22/21 = Clarity CSF) 2:01 PM) [facility] Hospitaltweet[facility] [id number] 20:01:00 Test Item Value Reference Range Interpretation Comments Supernat CSF (test code Xanthoch = Supernat CSF) 5*ABN*(09/22/21 2:01 PM) [facility] TexasBingo.comCARDIAC [id number] 21:34:00 Test Item Value Reference Range Interpretation Comments Total CK (test code = Total CK) 173 [facility] [employer]ann[employer]ARDIAC [id number] 17:59:00 Test Item Value Reference Range Interpretation Comments Total CK (test code = Total CK) 193 [facility] [id number] 14:38:00 Test Item Value Reference Range Interpretation Comments Total CK (test code = Total CK) 151 [facility] TexasBingo.comBACTERIAL - [id number] 07:40:00 Test Item Value Reference Range Interpretation Comments MRSA by PCR (test Negative (09/20/21 1:40 code = MRSA by PCR) AM) [facility] [employer] [id number] 07:40:00 Test Item Value Reference Range Interpretation Comments Lactic Acid Lvl (test code = Lactic 1.1 0.5-2.2 Acid Lvl) [facility] [id number] 07:10:30 Test Item Value Reference Range Interpretation Comments Coronavirus (COVID-19) Not Detected (09/20/21 STEPHANIA (test code = 1:10 AM) Coronavirus (COVID-19) STEPHANIA) [facility] [employer] [id number] 05:37:00 Test Item Value Reference Range Interpretation Comments HS Troponin I (test code = HS Troponin 1029 I) [facility] [employer]2022-02-16 03:59:00 Test Item Value Reference Range Interpretation Comments HS Troponin I (test code = HS Troponin 1060 I) [facility] [employer] [id number] 01:56:00 Test Item Value Reference Range Interpretation Comments ABO/Rh (test code = ABO/Rh) O POS [facility] [employer] [id number] 01:56:00 Test Item Value Reference Range Interpretation Comments HS Troponin I (test code = HS Troponin 958 I) [employer] [id number] 01:56:00 Test Item Value Reference Range Interpretation Comments Glucose Lvl (test code = Glucose Lvl) 102 70-99 [facility] [employer] [id number] 01:56:00 Test Item Value Reference Range Interpretation Comments BUN (test code = BUN) 18 7-22 [employer] [id number] 01:56:00 Test Item Value Reference Range Interpretation Comments Creatinine Lvl (test code = Creatinine 1.05 0.50-1.40 Lvl) [place] 676492-02-16 01:56:00 Test Item Value Reference Range Interpretation Comments Sodium Lvl (test code = Sodium Lvl) 142 135-145 [place] 676492-02-16 01:56:00 Test Item Value Reference Range Interpretation Comments Potassium Lvl (test code = Potassium 3.7 3.5-5.1 Lvl) [place] 676492-02-16 01:56:00 Test Item Value Reference Range Interpretation Comments Chloride Lvl (test code = Chloride Lvl) 110 95-109 [place] 676492-02-16 01:56:00 Test Item Value Reference Range Interpretation Comments CO2 (test code = CO2) 24 24-32 [place] 676492-02-16 01:56:00 Test Item Value Reference Range Interpretation Comments Calcium Lvl (test code = Calcium Lvl) 8.6 8.5-10.5 [place] 676492-02-16 01:56:00 Test Item Value Reference Range Interpretation Comments AGAP (test code = AGAP) 11.7 10.0-20.0 [place] 676492-02-16 01:56:00 Test Item Value Reference Range Interpretation Comments eGFR (test code = eGFR) 73 [place] 676492-02-16 01:56:00 Test Item Value Reference Range Interpretation Comments Magnesium Lvl (test code = Magnesium 1.8 1.8-2.4 Lvl) [place] 676492-02-16 01:56:00 Test Item Value Reference Range Interpretation Comments Phosphorus (test code = Phosphorus) 1.8 2.5-4.5 [place] 578512-02-16 01:56:00 Test Item Value Reference Range Interpretation Comments PT (test code = PT) 13.5 s 12.0-14.7 [place] 07[address]-02-16 01:56:00 Test Item Value Reference Range Interpretation Comments INR (test code = INR) 1.04 1 0.85-1.17 [place] [address]-02-16 01:56:00 Test Item Value Reference Range Interpretation Comments PTT (test code = PTT) 27.2 s 22.9-35.8 [place] [address]-02-16 01:56:00 Test Item Value Reference Range Interpretation Comments WBC (test code = WBC) 7.1 3.7-10.[address] [facility] HospitalGpsaeolQFSOXBHLPT9045-77-05 01:56:00 Test Item Value Reference Range Interpretation Comments RBC (test code = RBC) 4.36 4.70-6.[address] [facility] HospitalCjuhutjOQFDIDOPJT6448-04-66 01:56:00 Test Item Value Reference Range Interpretation Comments Hgb (test code = Hgb) 14.0 14.0-18.[address] [facility] HospitalCgkywgiZDESUFZAEL0617-79-18 01:56:00 Test Item Value Reference Range Interpretation Comments Hct (test code = Hct) 42.5 42.0-54.[address] [facility] Hos[id number] 01:56:00 Test Item Value Reference Range Interpretation Comments MCV (test code = MCV) 97.3 80.0-94.0 [place] 578512-02-16 01:56:00 Test Item Value Reference Range Interpretation Comments MCH (test code = MCH) 32.2 pg 27.0-31.[address] [facility] HospitalNcrihulBSIHYVOIOR1279-74-14 01:56:00 Test Item Value Reference Range Interpretation Comments MCHC (test code = MCHC) 33.1 32.0-36.[address] [facility] HospitalYhbrmzqZQCQSTCTLB6977-67-20 01:56:00 Test Item Value Reference Range Interpretation Comments RDW (test code = RDW) 16.2 11.5-14.[address] [facility] HospitalXzxnocmGUQYOYRKNT2125-95-58 01:56:00 Test Item Value Reference Range Interpretation Comments Platelet (test code = Platelet) 138 133-[address] [facility] [facility] HospitalHqgcqlkYMHJQUZAFU4794-15-79 01:56:00 Test Item Value Reference Range Interpretation Comments MPV (test code = MPV) 8.4 7.4-10.4 [place] 578512-02-16 01:56:00 Test Item Value Reference Range Interpretation Comments Segs (test code = Segs) 58.8 45.0-75.0 [place] 578512-02-16 01:56:00 Test Item Value Reference Range Interpretation Comments Lymphocytes (test code = Lymphocytes) 26.6 20.0-40.0 [place] 578512-02-16 01:56:00 Test Item Value Reference Range Interpretation Comments Monocytes (test code = Monocytes) 9.8 2.0-12.0 [place] 578512-02-16 01:56:00 Test Item Value Reference Range Interpretation Comments Eosinophils (test code = 4.1 See_Comment [A utomated message] The Eosinophils) system which ge nerated this result tra nsmitted reference range : <=4.0. The reference r jus was not used to int erpret this result as normal/abnormal . [place] 578512-02-16 01:56:00 Test Item Value Reference Range Interpretation Comments Basophils (test code = 0.7 See_Comment [Aut omated message] The Basophils) system which ge nerated this result tra nsmitted reference range : <=1.0. The reference r jus was not used to int erpret this result as normal/abnormal . [place] 578512-02-16 01:56:00 Test Item Value Reference Range Interpretation Comments Neutrophils # (test code = Neutrophils 4.2 1.5-8.1 #) [place] 578512-02-16 01:56:00 Test Item Value Reference Range Interpretation Comments Lymphocytes # (test code = Lymphocytes 1.9 1.0-5.5 #) [place] 578512-02-16 01:56:00 Test Item Value Reference Range Interpretation Comments Monocytes # (test code 0.7 See_Comment [Aut omated message] The = Monocytes #) system which generated this result tra nsmitted reference range : <=0.8. The reference r jus was not used to int erpret this result as normal/abnormal . [place] 578512-02-16 01:56:00 Test Item Value Reference Range Interpretation Comments Eosinophils # (test code 0.3 See_Comment [A utomated message] The = Eosinophils #) system whic h generated this result tra nsmitted reference range : <=0.5. The reference r jus was not used to int erpret this result as normal/abnormal . [facility] [id number] 01:56:00 Test Item Value Reference Range Interpretation Comments Ca Ion WB (test code = Ca Ion WB) 1.11 1.05-1.25 [place] 771382-02-16 01:56:00 Test Item Value Reference Range Interpretation Comments Ca Ion (7.4) WB (test code = Ca Ion 1.13 1.05-1.25 (7.4) WB) [facility] AND [id number] 08:14:23 Test Item Value Reference Range Interpretation Comments UA Spec Grav (test code = UA Spec Grav) 1.016 [facility] AND [id number] 08:14:23 Test Item Value Reference Range Interpretation Comments UA Protein (test code = UA Protein) 20 mg/dL [facility] AND [id number] 08:14:23 Test Item Value Reference Range Interpretation Comments UA Turbidity (test code = Clear (10/12/2013 UA Turbidity) 03:14:23 [facility]) [facility] AND [id number] 08:14:23 Test Item Value Reference Range Interpretation Comments UA pH (test code = UA pH) 5.5 5.0-8.0 [facility] AND [id number] 08:14:23 Test Item Value Reference Range Interpretation Comments UA Leuk Est (test Negative (10/12/2013 code = UA Leuk Est) 03:14:23 [facility] AND [id number] 08:14:23 Test Item Value Reference Range Interpretation Comments UA WBC (test code = 1 See_Comment [Automa jeniffer message] The UA WBC) system which ge nerated this result transmit jeniffer reference range : <=5. The reference range was not used to interpr et this result as barry l/abnormal. [facility] AND [id number] 08:14:23 Test Item Value Reference Range Interpretation Comments UA Urobilinogen (test code = UA <=1.0 mg/dL 0.1-1.0 Urobilinogen) [facility] AND [id number] 08:14:23 Test Item Value Reference Range Interpretation Comments UA Bili (test code = Negative *NA*(10/12/2013 UA Bili) 03:14:23 [facility] AND [id number] 08:14:23 Test Item Value Reference Range Interpretation Comments UA Blood (test code = Moderate UA Blood) *ABN*(10/12/2013 03:14:23 [facility] AND [id number] 08:14:23 Test Item Value Reference Range Interpretation Comments UA Nitrite (test code Negative (10/12/2013 = UA Nitrite) 03:14:23 [facility] AND [id number] 08:14:23 Test Item Value Reference Range Interpretation Comments UA Glucose (test code = UA Negative mg/dL Glucose) [facility] AND [id number] 08:14:23 Test Item Value Reference Range Interpretation Comments UA Color (test code = Yellow *NA*(10/12/2013 UA Color) 03:14:23 [facility] AND [id number] 08:14:23 Test Item Value Reference Range Interpretation Comments UA Mucus (test code = UA Mucus) Few /LPF [facility] AND [id number] 08:14:23 Test Item Value Reference Range Interpretation Comments UA RBC (test code = 3 See_Comment [Automa jeniffer message] The UA RBC) system which ge nerated this result transmit jeniffer reference range : <=2. The reference range was not used to interpr et this result as barry l/abnormal. [facility] AND [id number] 08:14:23 Test Item Value Reference Range Interpretation Comments UA Ketones (test code = UA Ketones) 40 mg/dL [facility] AND [id number] 08:14:23 Test Item Value Reference Range Interpretation Comments UA Sq Epi (test code = UA Sq Epi) None Seen [facility]VllbdkfGRZPLJMNUOZV7777-00-32 08:14:00 Test Item Value Reference Range Interpretation Comments Chloride Lvl (test code = Chloride Lvl) 103 95-109 [facility]aginawWfpusmkYHWSWFVHMXXY5855-15-37 08:14:00 Test Item Value Reference Range Interpretation Comments AGAP (test code = AGAP) 11.2 10.0-20.0 [facility]awQbqwgnbYQJWNRGRQULB0905-70-38 08:14:00 Test Item Value Reference Range Interpretation Comments Calcium Lvl (test code = Calcium Lvl) 8.3 8.5-10.5 [facility]awQolrrufKZPJODQFURAU6993-68-03 08:14:00 Test Item Value Reference Range Interpretation Comments CO2 (test code = CO2) 23 24-32 [facility]awXozelraMXCLNVFOCCHX1405-08-14 08:14:00 Test Item Value Reference Range Interpretation Comments eGFR (test code = eGFR) 59 [facility]aginawXwfxhrrMLJOEVZYYSRG8370-29-02 08:14:00 Test Item Value Reference Range Interpretation Comments Sodium Lvl (test code = Sodium Lvl) 133 135-145 [facility]aginawAsjbtscOBXCELEWHWZD0480-87-31 08:14:00 Test Item Value Reference Range Interpretation Comments Potassium Lvl (test code = Potassium 4.2 3.5-5.1 Lvl) [facility]awCzjtboeIDHOCZIPUDBH0293-56-59 08:14:00 Test Item Value Reference Range Interpretation Comments Creatinine Lvl (test code = Creatinine 1.3 0.5-1.4 Lvl) [facility]aginawVitchahDFWSLAAHZXQC2594-55-27 08:14:00 Test Item Value Reference Range Interpretation Comments Glucose Lvl (test code = Glucose Lvl) 105 70-99 [facility]aginawMktcqhvWIQHZXPFXIHB1021-75-99 08:14:00 Test Item Value Reference Range Interpretation Comments BUN (test code = BUN) 12 7-[address] [facility] HospitalHwmhabaWUNCCTDMNQ1345-47-08 08:14:00 Test Item Value Reference Range Interpretation Comments Monocytes # (test code 1.9 See_Comment [Aut omated message] The = Monocytes #) system which generated this result tra nsmitted reference range : <=0.8. The reference r jus was not used to int erpret this result as normal/abnormal . [facility] HospitalQyscnxyNDXUMXZSVI2423-36-82 08:14:00 Test Item Value Reference Range Interpretation Comments Basophils # (test code 0.1 See_Comment [Aut omated message] The = Basophils #) system which generated this result tra nsmitted reference range : <=0.2. The reference r jus was not used to int erpret this result as normal/abnormal . [facility] HospitalSsdgzezQQSDSYKKVH2150-02-31 08:14:00 Test Item Value Reference Range Interpretation Comments Segs-Bands # (test code = Segs-Bands #) 13.7 1.5-8.[address] HospitalGvwrvglFMIZOGWJWX9863-11-02 08:14:00 Test Item Value Reference Range Interpretation Comments Lymphocytes # (test code = Lymphocytes 3.5 1.0-5.5 #) [facility] HospitalVsuwffhEBWKIRDEGZ6890-01-49 08:14:00 Test Item Value Reference Range Interpretation Comments Eosinophils (test code = 0.1 See_Comment [A utomated message] The Eosinophils) system which ge nerated this result tra nsmitted reference range : <=4.0. The reference r jus was not used to int erpret this result as normal/abnormal . [facility] HospitalNsmkxclKLKUGRNMEM9350-23-00 08:14:00 Test Item Value Reference Range Interpretation Comments Monocytes (test code = Monocytes) 9.7 2.0-12.[address] [facility] HospitalVhabtqmNRMTFMSAUW7303-15-23 08:14:00 Test Item Value Reference Range Interpretation Comments Basophils (test code = 0.3 See_Comment [Aut omated message] The Basophils) system which ge nerated this result tra nsmitted reference range : <=1.0. The reference r jus was not used to int erpret this result as normal/abnormal . [facility] HospitalYrnahzaUUJXBGWIDJ2546-29-23 08:14:00 Test Item Value Reference Range Interpretation Comments Segs (test code = Segs) 71.8 45.0-75.[address] HospitalPepashwLJFYYDUKWP8478-19-06 08:14:00 Test Item Value Reference Range Interpretation Comments Lymphocytes (test code = Lymphocytes) 18.1 20.0-40.[address] [facility] HospitalOurcyivNGYWCIHORV9983-98-94 08:14:00 Test Item Value Reference Range Interpretation Comments MPV (test code = MPV) 9.3 7.4-10.[address] [facility] HospitalZvseuieQHRQQICSWB5032-67-40 08:14:00 Test Item Value Reference Range Interpretation Comments Platelet (test code = Platelet) 192 133-[address] [facility] [facility] HospitalVdetiibPFCBGWXHRB0636-78-24 08:14:00 Test Item Value Reference Range Interpretation Comments MCH (test code = MCH) 27.9 pg 27.0-31.[address] HospitalAajhtzwFQRWSTOUEY8644-90-26 08:14:00 Test Item Value Reference Range Interpretation Comments RDW (test code = RDW) 14.9 11.5-14.[address] HospitalLvxiujwIPJUZTJOJK2111-21-40 08:14:00 Test Item Value Reference Range Interpretation Comments MCHC (test code = MCHC) 34.3 32.0-36.[address] [facility] HospitalKbjtyzkFTBMOITMUD2672-95-49 08:14:00 Test Item Value Reference Range Interpretation Comments MCV (test code = MCV) 81.4 80.0-94.[address] HospitalDzsjahmYIDKWBPXSP7566-09-88 08:14:00 Test Item Value Reference Range Interpretation Comments Hct (test code = Hct) 40.1 42.0-54.0 [facility] ZxmwkeeXWWJLYUPNJ7225-26-88 08:14:00 Test Item Value Reference Range Interpretation Comments RBC X 10x6 (test code = RBC X 10x6) 4.92 4.70-6.10 [facility] AhnaggtUJKQWKMKAD5920-55-62 08:14:00 Test Item Value Reference Range Interpretation Comments Hgb (test code = Hgb) 13.7 14.0-18.0 [facility] CgzkfpvZUMLDQXCDM8838-09-97 08:14:00 Test Item Value Reference Range Interpretation Comments WBC X 10x3 (test code = WBC X 10x3) 19.0 3.7-10.4 [facility] [employer] [id number] 08:10:00 Test Item Value Reference Range Interpretation Comments Antibody Scrn (test Negative (10/12/2013 code = Antibody Scrn) 03:10:00 [facility] [employer] [id number] 08:10:00 Test Item Value Reference Range Interpretation Comments ABO/Rh (test code = ABO/Rh) O POS [facility] [employer] [id number] 00:35:51 Test Item Value Reference Range Interpretation Comments Lactic Acid Lvl (test code = Lactic 1.1 0.5-2.2 Acid Lvl) [facility] YKHAKWGKV1692-06-19 12:01:30 Test Item Value Reference Range Interpretation Comments Hgb A1C (test code = Hgb A1C) 5.2 [facility] [employer] [id number] 09:59:00 Test Item Value Reference Range Interpretation Comments Glucose Lvl (test code = Glucose Lvl) 105 70-99 [facility] [employer] [id number] 09:59:00 Test Item Value Reference Range Interpretation Comments BUN (test code = BUN) 12 7-22 [facility] [employer] [id number] 09:59:00 Test Item Value Reference Range Interpretation Comments Sodium Lvl (test code = Sodium Lvl) 137 135-145 [facility] [employer] [id number] 09:59:00 Test Item Value Reference Range Interpretation Comments Creatinine Lvl (test code = Creatinine 1.2 0.5-1.4 Lvl) [facility]2014-03-09 09:59:00 Test Item Value Reference Range Interpretation Comments eGFR (test code = eGFR) 65 [facility]2014-03-09 09:59:00 Test Item Value Reference Range Interpretation Comments Calcium Lvl (test code = Calcium Lvl) 8.7 8.5-10.5 [facility]2014-03-09 09:59:00 Test Item Value Reference Range Interpretation Comments Potassium Lvl (test code = Potassium 4.2 3.5-5.1 Lvl) [facility]2014-03-09 09:59:00 Test Item Value Reference Range Interpretation Comments CO2 (test code = CO2) 22 24-32 [facility]2014-03-09 09:59:00 Test Item Value Reference Range Interpretation Comments Chloride Lvl (test code = Chloride Lvl) 104 95-109 [facility]2014-03-09 09:59:00 Test Item Value Reference Range Interpretation Comments AGAP (test code = AGAP) 15.2 10.0-20.0 [facility]2014-03-09 09:59:00 Test Item Value Reference Range Interpretation Comments Magnesium Lvl (test code = Magnesium 1.7 1.8-2.4 Lvl) [facility]2014-03-09 09:59:00 Test Item Value Reference Range Interpretation Comments Phosphorus (test code = Phosphorus) 3.3 2.5-4.[address] [facility]NgkaigzHIKYPBGCBN9949-81-82 09:59:00 Test Item Value Reference Range Interpretation Comments MCV (test code = MCV) 81.5 80.0-94.0 [place] [id number] 09:59:00 Test Item Value Reference Range Interpretation Comments WBC X 10x3 (test code = WBC X 10x3) 13.3 3.7-10.[address] [facility] HospitalRvbnqxjZSWYAAEMSA0002-10-23 09:59:00 Test Item Value Reference Range Interpretation Comments RBC X 10x6 (test code = RBC X 10x6) 5.11 4.70-6.[address] [facility] HospitalDngjjzqGJZKUZRBMU7830-27-38 09:59:00 Test Item Value Reference Range Interpretation Comments Hgb (test code = Hgb) 14.2 14.0-18.0 [place] 350514-03-09 09:59:00 Test Item Value Reference Range Interpretation Comments Hct (test code = Hct) 41.6 42.0-54.[address] [facility] HospitalDhbnkkxBEHSZGYEXR9191-29-75 09:59:00 Test Item Value Reference Range Interpretation Comments RDW (test code = RDW) 15.1 11.5-14.[address] [facility] HospitalHjyhommIRAIFTWPHZ2800-55-48 09:59:00 Test Item Value Reference Range Interpretation Comments MCHC (test code = MCHC) 34.2 32.0-36.[address] [facility] HospitalEczlakaXWMBGFNEQT8943-18-80 09:59:00 Test Item Value Reference Range Interpretation Comments MCH (test code = MCH) 27.9 pg 27.0-31.[address] [facility] HospitalOuvilexCXWSUGMGTI3663-04-69 09:59:00 Test Item Value Reference Range Interpretation Comments Platelet (test code = Platelet) 196 133-[address] [facility] HospitalKnhorrxLKWRJRJUIO5788-00-93 09:59:00 Test Item Value Reference Range Interpretation Comments MPV (test code = MPV) 9.2 7.4-10.[address] [facility] HospitalBdnfitlOJHQDRLOYA9517-45-55 09:59:00 Test Item Value Reference Range Interpretation Comments Lymphocytes (test code = Lymphocytes) 17.7 20.0-40.[address] [facility] HospitalTujylfvYNXNEDLQDX7715-43-49 09:59:00 Test Item Value Reference Range Interpretation Comments Segs (test code = Segs) 70.7 45.0-75.[address] [facility] HospitalFfmpbiiNSPWWLLXSO6178-40-14 09:59:00 Test Item Value Reference Range Interpretation Comments Eosinophils # (test code 0.1 See_Comment [A utomated message] The = Eosinophils #) system whic h generated this result tra nsmitted reference range : <=0.5. The reference r jus was not used to int erpret this result as normal/abnormal . [facility] HospitalPmicwtfLDXGNZKORM7107-57-41 09:59:00 Test Item Value Reference Range Interpretation Comments Basophils # (test code 0.1 See_Comment [Aut omated message] The = Basophils #) system which generated this result tra nsmitted reference range : <=0.2. The reference r jus was not used to int erpret this result as normal/abnormal . [facility] HospitalIeuhpyyOUQXBVACHV3476-71-87 09:59:00 Test Item Value Reference Range Interpretation Comments Segs-Bands # (test code = Segs-Bands #) 9.4 1.5-8.[address] [facility] HospitalHeupioqFMFIEUMBQI9002-45-66 09:59:00 Test Item Value Reference Range Interpretation Comments Lymphocytes # (test code = Lymphocytes 2.4 1.0-5.5 #) [facility] HospitalAbcxejoNWHRFWIGUF7808-38-14 09:59:00 Test Item Value Reference Range Interpretation Comments Monocytes # (test code 1.4 See_Comment [Aut omated message] The = Monocytes #) system which generated this result tra nsmitted reference range : <=0.8. The reference r jus was not used to int erpret this result as normal/abnormal . [facility] HospitalNupyjlvLVGWLDGSZR1383-84-03 09:59:00 Test Item Value Reference Range Interpretation Comments Eosinophils (test code = 0.4 See_Comment [A utomated message] The Eosinophils) system which ge nerated this result tra nsmitted reference range : <=4.0. The reference r jus was not used to int erpret this result as normal/abnormal . [facility] HospitalFmmioioTIFPWSXRYV3339-81-32 09:59:00 Test Item Value Reference Range Interpretation Comments Basophils (test code = 0.5 See_Comment [Aut omated message] The Basophils) system which ge nerated this result tra nsmitted reference range : <=1.0. The reference r jus was not used to int erpret this result as normal/abnormal . [facility] HospitalVmqlswtFUWFRXQVZB2964-41-14 09:59:00 Test Item Value Reference Range Interpretation Comments Monocytes (test code = Monocytes) 10.7 2.0-12.0 [facility]2014-03-09 02:22:00 Test Item Value Reference Range Interpretation Comments Lactic Acid Lvl (test code = Lactic 0.9 0.5-2.2 Acid Lvl) [facility]2014-03-09 02:13:00 Test Item Value Reference Range Interpretation Comments eGFR (test code = eGFR) 50 [facility]2014-03-09 02:13:00 Test Item Value Reference Range Interpretation Comments Glucose Lvl (test code = Glucose Lvl) 134 70-99 [place] 644464-03-09 02:13:00 Test Item Value Reference Range Interpretation Comments BUN (test code = BUN) 14 7-22 [place] 644464-03-09 02:13:00 Test Item Value Reference Range Interpretation Comments Creatinine Lvl (test code = Creatinine 1.5 0.5-1.4 Lvl) [facility]2014-03-09 02:13:00 Test Item Value Reference Range Interpretation Comments CO2 (test code = CO2) 23 24-32 [place] 644464-03-09 02:13:00 Test Item Value Reference Range Interpretation Comments AGAP (test code = AGAP) 15.9 10.0-20.0 [place] 644464-03-09 02:13:00 Test Item Value Reference Range Interpretation Comments Potassium Lvl (test code = Potassium 3.9 3.5-5.1 Lvl) [facility]2014-03-09 02:13:00 Test Item Value Reference Range Interpretation Comments Calcium Lvl (test code = Calcium Lvl) 8.5 8.5-10.5 [place] 644464-03-09 02:13:00 Test Item Value Reference Range Interpretation Comments Chloride Lvl (test code = Chloride Lvl) 104 95-109 [place] 644464-03-09 02:13:00 Test Item Value Reference Range Interpretation Comments Sodium Lvl (test code = Sodium Lvl) 139 135-[address] [facility] HospitalDfneoxxCPMPIMHZYU8835-09-07 02:13:00 Test Item Value Reference Range Interpretation Comments Basophils # (test code 0.1 See_Comment [Aut omated message] The = Basophils #) system which generated this result tra nsmitted reference range : <=0.2. The reference r jus was not used to int erpret this result as normal/abnormal . [facility] HospitalZkntkbgCBSBDDUUKV1706-71-81 02:13:00 Test Item Value Reference Range Interpretation Comments Basophils (test code = 0.5 See_Comment [Aut omated message] The Basophils) system which ge nerated this result tra nsmitted reference range : <=1.0. The reference r jus was not used to int erpret this result as normal/abnormal . [place] [address]-03-09 02:13:00 Test Item Value Reference Range Interpretation Comments Monocytes # (test code 1.3 See_Comment [Aut omated message] The = Monocytes #) system which generated this result tra nsmitted reference range : <=0.8. The reference r jus was not used to int erpret this result as normal/abnormal . [facility] HospitalQahteiaBBAOGUKSQD9317-26-87 02:13:00 Test Item Value Reference Range Interpretation Comments Eosinophils # (test code 0.1 See_Comment [A utomated message] The = Eosinophils #) system whic h generated this result tra nsmitted reference range : <=0.5. The reference r jus was not used to int erpret this result as normal/abnormal . [facility] HospitalLqzxmgsVRPJXNRBCG8663-66-93 02:13:00 Test Item Value Reference Range Interpretation Comments Lymphocytes # (test code = Lymphocytes 2.0 1.0-5.5 #) [facility] HospitalKnuckayWLNLGYZPAL5445-68-40 02:13:00 Test Item Value Reference Range Interpretation Comments Monocytes (test code = Monocytes) 10.4 2.0-12.[address] [facility] HospitalAyiinavNBINRBATXT5947-55-26 02:13:00 Test Item Value Reference Range Interpretation Comments Segs (test code = Segs) 72.8 45.0-75.[address] [facility] HospitalKztsrpcEYRGBYNWUX1835-64-95 02:13:00 Test Item Value Reference Range Interpretation Comments Lymphocytes (test code = Lymphocytes) 15.5 20.0-40.[address] [facility] HospitalJqolzssKCJRVKUFQN6018-76-01 02:13:00 Test Item Value Reference Range Interpretation Comments Segs-Bands # (test code = Segs-Bands #) 9.3 1.5-8.[address] [facility] HospitalDxcwxhyUMTVIKMPYW3559-62-11 02:13:00 Test Item Value Reference Range Interpretation Comments Eosinophils (test code = 0.8 See_Comment [A utomated message] The Eosinophils) system which ge nerated this result tra nsmitted reference range : <=4.0. The reference r jus was not used to int erpret this result as normal/abnormal . [facility] HospitalWcxyjwbDEMJTZSGON8894-19-53 02:13:00 Test Item Value Reference Range Interpretation Comments RBC X 10x6 (test code = RBC X 10x6) 4.79 4.70-6.[address] [facility] HospitalRxfulqnZIATUHRTEH0762-33-69 02:13:00 Test Item Value Reference Range Interpretation Comments Hgb (test code = Hgb) 13.3 14.0-18.[address] [facility] HospitalJuuuyjxLYBSDHZWEN8441-03-32 02:13:00 Test Item Value Reference Range Interpretation Comments WBC X 10x3 (test code = WBC X 10x3) 12.8 3.7-10.[address] [facility] HospitalWpcfhplNBWQEEWAYF4209-03-84 02:13:00 Test Item Value Reference Range Interpretation Comments MPV (test code = MPV) 9.0 7.4-10.[address] [facility] HospitalRciixmgMPCPAFTTJZ7485-00-09 02:13:00 Test Item Value Reference Range Interpretation Comments Platelet (test code = Platelet) 205 133-[address] [facility] HospitalGdfprxhTQUTPMHARZ3056-22-85 02:13:00 Test Item Value Reference Range Interpretation Comments RDW (test code = RDW) 14.2 11.5-14.[address] [facility] HospitalBpmtsxtFMEUCSPFVX5490-60-95 02:13:00 Test Item Value Reference Range Interpretation Comments MCV (test code = MCV) 80.8 80.0-94.[address] [facility] HospitalMkgjxyjCSQUPFTLON6425-63-22 02:13:00 Test Item Value Reference Range Interpretation Comments Hct (test code = Hct) 38.7 42.0-54.[address] [facility] HospitalCguphslWOUGWYZSWS6733-01-60 02:13:00 Test Item Value Reference Range Interpretation Comments MCHC (test code = MCHC) 34.4 32.0-36.[address] [facility] HospitalUozuhbaQBFRJNXXDJ2449-86-33 02:13:00 Test Item Value Reference Range Interpretation Comments MCH (test code = MCH) 27.8 pg 27.0-31.0 [facility]
[2022-05-27] MEDS ORDERED: ASPIRIN 81 MG CHEWABLE TABLET ONE (02:57)
[2022-05-27] MEDS ORDERED: NA CHLORIDE 0.9% 1,000 ML ONE (02:57)
[2022-05-27 03:03] LABS: Absolute Lymphocytes (CBC) 3.2 K/uL (0.7-4.9); Hematocrit 40.9 % (39.6-49.0); Lymphocytes % 24.4 % (15.3-44.8); MPV 7.8 fL (7.6-11.3); RBC Red Blood Cell Count 4.75 M/uL (4.33-5.43)
[2022-05-27 03:07] LABS: Protime INR 1.12
[2022-05-27 03:16] LABS: SARS-CoV-2 Antigen Rapid Res Negative (Negative)
[2022-05-27 03:23] LABS: ALT/SGPT 16 U/L (12-78); AST/SGOT 10 U/L (15-37); Albumin 3.2 g/dL (3.4-5.0); Alkaline Phosphatase 119 U/L (45-117); BUN Blood Urea Nitrogen 33 mg/dL (7-18); Bicarbonate 25 mmol/L (21-32); Bilirubin Total 0.2 mg/dL (0.2-1.0); Glomerular Filtration Rate 49 ml/min (=/>90); Glucose Level 103 mg/dL (74-106); Lipase 173 U/L (73-393); Magnesium 1.9 mg/dL (1.8-2.4); NT PRO-BNP 323 pg/mL (<125); Potassium 3.6 mmol/L (3.5-5.1); Protein, Total 6.8 g/dL (6.4-8.2); Sodium Level 137 mmol/L (136-145); Troponin High Sensitivity 24.3 pg/mL (<58.9)
[2022-05-27 03:26] LABS: Bilirubin Direct < 0.1 mg/dL (0-0.2)
--- NOTE | 2022-05-27 04:07 | EDPHYS ---
Physician Documentation [facility] Name: Mookie Manning Age: 71 yrs Sex: Male : 1950 Arrival Date: 05/27/2022 Time: 02:11 Bed 19 Private MD: ED Physician Alex Mustafa HPI: 05/27 02:25 This 71 yrs old Male presents to ER via EMS with complaints of PALPITATIONS mary kay AND SYNC. 02:25 The patient presents with a history of irregular heart beat, heart skipping beats. mary kay Context: The symptoms occur at rest. Onset: The symptoms/episode began/occurred just prior to arrival, 1 month(s) ago. Duration: The patient or guardian reports multiple episodes, that are intermittent, that wax and wane. Modifying factors: The symptoms are aggravated by nothing. The symptoms are alleviated by nothing. remaining still. The patient has experienced near-syncope, almost passed out, felt dizzy, felt faint. Onset: The symptoms/episode began/occurred. Duration: The patient has had multiple episodes, that last 1 minute(s). Associated signs and symptoms: Pertinent positives: lightheadedness, nausea. Associated injury: The patient did not suffer any apparent associated injury. Historical: - Allergies: 02:16 No Known Allergies; lg3 - Home Meds: 02:16 ropinirole Oral [Active]; temazepam Oral [Active]; losartan Oral as needed [Active]; lg3 Hydrocodone-Acetaminophen Oral [Active]; - PMHx: 02:16 Clear cell carcinoma; COPD; Osteoporosis; HTN; lg3 - PSHx: 02:16 left kidney removed; lg3 - Immunization history:: Adult Immunizations up to date, Client reports receiving the 2nd dose of the Covid vaccine. - Social history:: Smoking status: Patient reports the use of cigarette tobacco products, smokes one-half pack cigarettes per day, Patient/guardian denies using alcohol, street drugs. ROS: 02:27 Constitutional: Negative for fever, chills, and weight loss, Eyes: Negative for injury, mary kay pain, redness, and discharge, ENT: Negative for injury, pain, and discharge, Neck: Negative for injury, pain, and swelling, Respiratory: Negative for shortness of breath, cough, wheezing, and pleuritic chest pain, Abdomen/GI: Negative for abdominal pain, nausea, vomiting, diarrhea, and constipation, Back: Negative for injury and pain, : Negative for injury, bleeding, discharge, and swelling, MS/Extremity: Negative for injury and deformity, Skin: Negative for injury, rash, and discoloration, Neuro: Negative for headache, weakness, numbness, tingling, and seizure, Psych: Negative for depression, anxiety, suicide ideation, homicidal ideation, and hallucinations, Allergy/Immunology: Negative for hives, rash, and allergies, Endocrine: Negative for neck swelling, polydipsia, polyuria, polyphagia, and marked weight changes, Hematologic/Lymphatic: Negative for swollen nodes, abnormal bleeding, and unusual bruising. 02:27 Cardiovascular: Positive for palpitations. Exam: 02:27 Constitutional: This is a well developed, well nourished patient who is awake, alert, mary kay and in no acute distress. Head/Face: Normocephalic, atraumatic. Eyes: Pupils equal round and reactive to light, extra-ocular motions intact. Lids and lashes normal. Conjunctiva and sclera are non-icteric and not injected. Cornea within normal limits. Periorbital areas with no swelling, redness, or edema. ENT: Nares patent. No nasal discharge, no septal abnormalities noted. Tympanic membranes are normal and external auditory canals are clear. Oropharynx with no redness, swelling, or masses, exudates, or evidence of obstruction, uvula midline. Mucous membranes moist. Neck: Trachea midline, no thyromegaly or masses palpated, and no cervical lymphadenopathy. Supple, full range of motion without nuchal rigidity, or vertebral point tenderness. No Meningismus. Chest/axilla: Normal chest wall appearance and motion. Nontender with no deformity. No lesions are appreciated. Respiratory: Lungs have equal breath sounds bilaterally, clear to auscultation and percussion. No rales, rhonchi or wheezes noted. No increased work of breathing, no retractions or nasal flaring. Abdomen/GI: Soft, non-tender, with normal bowel sounds. No distension or tympany. No guarding or rebound. No evidence of tenderness throughout. Back: No spinal tenderness. No costovertebral tenderness. Full range of motion. Male : Normal genitalia with no discharge or lesions. Skin: Warm, dry with normal turgor. Normal color with no rashes, no lesions, and no evidence of cellulitis. MS/ Extremity: Pulses equal, no cyanosis. Neurovascular intact. Full, normal range of motion. Neuro: Awake and alert, GCS 15, oriented to person, place, time, and situation. Cranial nerves II-XII grossly intact. Motor strength 5/5 in all extremities. Sensory grossly intact. Cerebellar exam normal. Normal gait. Psych: Awake, alert, with orientation to person, place and time. Behavior, mood, and affect are within normal limits. 02:27 Cardiovascular: Rate: normal, Rhythm: irregularly irregular, Pulses: Pulses are 4+ in bilateral radial, brachial, femoral, popliteal, posterior tibial and and dorsalis pedis arteries.. Heart sounds: normal, normal S1and S2, no S3 or S4, no murmur, no rub, no gallop. 02:27 ECG was reviewed by the Attending Physician. Vital Signs: 02:16 BP 127 / 74; Pulse 77; Resp 19; Temp 98(O); Pulse Ox 98% on R/A; Weight 86.18 kg (R); lg3 Height 6 ft. 0 in. (182.88 cm) (R); 02:26 BP 127 / 74; Pulse 77; Resp 19; Temp 98(O); Pulse Ox 98% on R/A; Weight 86.18 kg (R); lg3 Height 6 ft. 1 in. (185.42 cm) (R); 03:28 BP 149 / 68; Pulse 81; Resp 18 S; Pulse Ox 98% on R/A; lg3 02:26 Body Mass Index 25.07 (86.18 kg, 185.42 cm) lg3 MDM: 02:13 Patient medically screened. mary kay 02:29 Differential diagnosis: arrythmia, dehydration. Differential Diagnosis: cardiac mary kay arrhythmia, cerebrovascular accident, drug effect, emotional response, GI bleed, idiopathic syncope, pseudo seizure, seizure, sepsis, vasovagal episode. Data reviewed: vital signs, nurses notes, EMS record, diagnostic data from outside facility, amylase and lipase, cardiac enzymes, CBC, drug level(s), EKG, electrolytes, hepatic panel, radiologic studies, urinalysis, lab test result(s), cardiac enzymes, CBC, electrolytes, hepatic panel, EKG, radiologic studies, plain films. Data interpreted: shipping processor: rate is 77 beats/min, rhythm is regular, Pulse oximetry: on room air is 98 %. Test interpretation: by ED physician or midlevel provider: ECG, plain radiologic studies. Counseling: I had a detailed discussion with the patient and/or guardian regarding: the historical points, exam findings, and any diagnostic results supporting the discharge/admit diagnosis, lab results, radiology results, the need for further work-up and treatment in the hospital. 05/27 02:15 Order name: Basic Metabolic Panel; Complete Time: 04:02 05/27 02:15 Order name: CBC with Diff; Complete Time: 03:10 05/27 02:15 Order name: LFT's; Complete Time: 04:02 05/27 02:15 Order name: Magnesium; Complete Time: 04:02 05/27 02:15 Order name: NT PRO-BNP; Complete Time: 04:02 05/27 02:15 Order name: PT-INR; Complete Time: 03:10 05/27 02:15 Order name: Troponin HS; Complete Time: 04:02 05/27 02:15 Order name: XRAY Chest (1 view) 05/27 02:15 Order name: Lipase; Complete Time: 04:02 05/27 02:15 Order name: SARS RAPID; Complete Time: 04:02 05/27 02:24 Order name: TSH; Complete Time: 04:02 05/27 02:15 Order name: EKG; Complete Time: 02:16 05/27 02:15 Order name: Cardiac monitoring; Complete Time: 02:27 05/27 02:15 Order name: EKG - Nurse/Tech; Complete Time: 03:13 05/27 02:15 Order name: IV Saline Lock; Complete Time: 02:41 05/27 02:15 Order name: Labs collected and sent; Complete Time: 02:51 05/27 02:15 Order name: O2 Per Protocol; Complete Time: 02:27 05/27 02:15 Order name: O2 Sat Monitoring; Complete Time: 02:27 05/27 04:14 Order name: CONS Physician Consult EDMS EC: Rate is 83 beats/min. Rhythm is regular. QRS [place] is Normal. [place] interval is normal. QRS mary kay interval is normal. QT interval is normal. No Q waves. T waves are Normal. No ST changes noted. Clinical impression: NSR w/ Non-specific ST/T Changes and No evidence of ischemia. Interpreted by me. Reviewed by me. Administered Medications: 03:01 Drug: Aspirin Chewable Tablet 324 mg Route: PO; lg3 03:01 Follow up: Response: No adverse reaction lg3 03:01 Drug: NS 0.9% 1000 ml Route: IV; Rate: 125 ml/hr; Site: left hand; lg3 05:28 Drug: Requip (rOPINIRole) 1 mg Route: PO; lg3 Disposition Summary: 05/27/22 04:06 Hospitalization Ordered Hospitalization Status: Observation mary kay Provider: Alexandru Oliveira cha Location: Telemetry/MedSurg (observation) mary kay Condition: Fair mary kay Problem: new mary kay Symptoms: have improved mary kay Bed/Room Type: Standard mary kay Room Assignment: 410(05/27/22 04:36) mw Diagnosis - Syncope Near mary kay - Palpitations mary kay - Unspecified kidney failure - INSUFFICENCY mary kay - Elevated white blood cell count mary kay Forms: - Medication Reconciliation Form mary kay - SBAR form mary kay Signatures: Dispatcher [employer] EDMindy Almaguer RN RN Alex De Anda MD MD cha Gibson, Lacie, RN RN lg3 Corrections: (The following items were deleted from the chart) 04:36 04:06 mary kay mw
--- NOTE | 2022-05-27 04:07 | ER ---
Nurse's Notes [facility] Name: Mookie Manning Age: 71 yrs Sex: Male : 1950 Arrival Date: 05/27/2022 Time: 02:11 Bed 19 Private MD: Diagnosis: Syncope Near;Palpitations;Unspecified kidney failure-INSUFFICENCY;Elevated white blood cell count Presentation: 05/27 02:12 Chief complaint: EMS states: toned out for chest pain. laying in bed around 2300 and lg3 began feeling flutters. got up to use restroom and felt faint. denies flutters at this time HX of AFIB. Coronavirus screen: Client denies travel out of the [place] in the last 14 days. At this time, the client does not indicate any symptoms associated with coronavirus-19. Ebola Screen: No symptoms or risks identified at this time. Risk Assessment: Do you want to hurt yourself or someone else? Patient reports no desire to harm self or others. Onset of symptoms was May 27, 2022. 02:12 Method Of Arrival: EMS: [facility] lg3 02:12 Acuity: LEIDA 3 lg3 02:26 Initial Sepsis Screen: Does the patient meet any 2 criteria? No. Patient's initial lg3 sepsis screen is negative. Does the patient have a suspected source of infection? No. Patient's initial sepsis screen is negative. Triage Assessment: 02:16 General: Appears in no apparent distress. comfortable, Behavior is calm, cooperative. lg3 Pain: Complains of pain in lower back, right shoulder Pain began chronic. EENT: No deficits noted. No signs and/or symptoms were reported regarding the EENT system. Neuro: No deficits noted. Gallegos Agitation-Sedation Scale (RASS): 0 - Alert and Calm Level of Consciousness is awake, alert, obeys commands, Oriented to person, place, time, situation. Cardiovascular: Denies chest pain, shortness of breath, Capillary refill < 3 seconds Clubbing of nail beds is absent JVD is absent Patient's skin is warm and dry. Chest pain is denied. Respiratory: No deficits noted. Airway is patent Trachea midline Respiratory effort is even, unlabored, Respiratory pattern is regular, symmetrical, Breath sounds are clear bilaterally. GI: No deficits noted. No signs and/or symptoms were reported involving the gastrointestinal system. Abdomen is round non-distended, Patient currently denies nausea, vomiting. : No deficits noted. No signs and/or symptoms were reported regarding the genitourinary system. Derm: No deficits noted. No signs and/or symptoms reported regarding the dermatologic system. Skin is intact, is healthy with good turgor, Skin is dry, Skin is normal, Skin temperature is warm. Musculoskeletal: Circulation, motion, and sensation intact. Range of motion: intact in all extremities, Reports pain in lower back, right shoulder. Historical: - Allergies: 02:16 No Known Allergies; lg3 - Home Meds: 02:16 ropinirole Oral [Active]; temazepam Oral [Active]; losartan Oral as needed [Active]; lg3 Hydrocodone-Acetaminophen Oral [Active]; - PMHx: 02:16 Clear cell carcinoma; COPD; Osteoporosis; HTN; lg3 - PSHx: 02:16 left kidney removed; lg3 - Immunization history:: Adult Immunizations up to date, Client reports receiving the 2nd dose of the Covid vaccine. - Social history:: Smoking status: Patient reports the use of cigarette tobacco products, smokes one-half pack cigarettes per day, Patient/guardian denies using alcohol, street drugs. Screenin:25 Abuse screen: Denies threats or abuse. Denies injuries from another. Nutritional lg3 screening: No deficits noted. Tuberculosis screening: No symptoms or risk factors identified. Fall Risk None identified. Assessment: 02:25 General: see triage assessment . lg3 03:27 Reassessment: Patient appears in no apparent distress at this time. No changes from lg3 previously documented assessment. Patient and/or family updated on plan of care and expected duration. Pain level reassessed. Patient is alert, oriented x 3, equal unlabored respirations, skin warm/dry/pink. Vital Signs: 02:16 BP 127 / 74; Pulse 77; Resp 19; Temp 98(O); Pulse Ox 98% on R/A; Weight 86.18 kg (R); lg3 Height 6 ft. 0 in. (182.88 cm) (R); 02:26 BP 127 / 74; Pulse 77; Resp 19; Temp 98(O); Pulse Ox 98% on R/A; Weight 86.18 kg (R); lg3 Height 6 ft. 1 in. (185.42 cm) (R); 03:28 BP 149 / 68; Pulse 81; Resp 18 S; Pulse Ox 98% on R/A; lg3 02:26 Body Mass Index 25.07 (86.18 kg, 185.42 cm) lg3 ED Course: 02:11 Patient arrived in ED. lg3 02:12 Lissy Reddy, RN is Primary Nurse. lg3 02:13 Alex Mustafa MD is Attending Physician. mary kay 02:16 Triage completed. lg3 02:16 Arm band placed on left wrist. lg3 02:25 Patient has correct armband on for positive identification. Placed in gown. Bed in low lg3 position. Call light in reach. Side rails up X2. Client placed on continuous cardiac and pulse oximetry monitoring. NIBP monitoring applied. equipment monitor phototypesetting on. Door closed. Noise minimized. Warm blanket given. 02:25 Maintain EMS IV. Dressing intact. Good blood return noted. Site clean \T\ dry. Gauge \T\ lg 3 site: 18 left hand. 02:50 TSH Sent. lg3 02:50 Lipase Sent. lg3 02:51 Basic Metabolic Panel Sent. lg3 02:51 CBC with Diff Sent. lg3 02:51 LFT's Sent. lg3 02:51 Magnesium Sent. lg3 02:51 NT PRO-BNP Sent. lg3 02:51 PT-INR Sent. lg3 02:51 Troponin HS Sent. lg3 02:54 SARS RAPID Sent. lg3 03:04 XRAY Chest (1 view) In Process Unspecified. EDNE 04:06 Alexandru Oliveira MD is Hospitalizing Provider. mary kay Administered Medications: 03:01 Drug: Aspirin Chewable Tablet 324 mg Route: PO; lg3 03:01 Follow up: Response: No adverse reaction lg3 03:01 Drug: NS 0.9% 1000 ml Route: IV; Rate: 125 ml/hr; Site: left hand; lg3 05:28 Drug: Requip (rOPINIRole) 1 mg Route: PO; lg3 Outcome: 04:06 Decision to Hospitalize by Provider. mary kay 08:27 Patient left the ED. jd3 Signatures: Dispatcher [employer] EDNE Alex Mustafa MD MD cha Davies, Jonathon, RN RN jd3 Reddy, Lissy, RN RN lg3
[2022-05-27] MEDS ORDERED: ONDANSETRON 4 MG/2 ML VIAL IV PRN (04:43)
[2022-05-27] MEDS ORDERED: ACETAMINOPHEN 325 MG TABLET PO PRN (04:43)
[2022-05-27 04:46] VITALS: BMI 25.0
[2022-05-27] MEDS ORDERED: ROPINIROLE HCL 1 MG TAB ONE (05:19)
[2022-05-27] MEDS ORDERED: INFLUENZA VACCINE (for 6+ mo) 0.5 ML DOSE IMVAC ONE (09:00)
[2022-05-27] MEDS ORDERED: PNEUMOCOCCAL VACCINE 0.5 ML IMVAC ONE (09:00)
[2022-05-27] MEDS: FAMOTIDINE 20 MG/2 ML VIAL IV SCH ×2 (10:17→21:23)
[2022-05-27] MEDS: MORPHINE 2 MG/ML SYR IV PRN ×2 (16:32→21:31)
--- NOTE | 2022-05-27 16:35 | EKG ---
Test Date: 2022-05-27 Test Time: 03:13:57 High Climber: MEASUREMENT RESULTS: Intervals: Rate: 68 OK: 188 QRSD: 90 QT: 408 QTc: 433 [place]: P: 49 OK: 188 QRS: 56 T: 76 INTERPRETIVE STATEMENTS: Normal sinus rhythm Normal ECG Compared to ECG 05/27/2022 03:13:29 No significant changes Electronically Signed On 05-27-22 16:34:32 CDT by Matt Lobo
--- NOTE | 2022-05-27 16:35 | EKG ---
Test Date: 2022-05-27 Test Time: 03:13:29 Direct Selling Counselor: MEASUREMENT RESULTS: Intervals: Rate: 67 WA: 190 QRSD: 88 QT: 412 QTc: 435 [place]: P: 49 WA: 190 QRS: 57 T: 69 INTERPRETIVE STATEMENTS: Normal sinus rhythm Normal ECG Compared to ECG 12/23/2021 20:20:49 Sinus tachycardia no longer present Atrial premature complex(es) no longer present First degree AV block no longer present Prolonged QT interval no longer present Electronically Signed On 05-27-22 16:34:34 CDT by Matt Lobo
[2022-05-27] MEDS: METOPROLOL TAR 25 MG TAB PO SCH (16:55)
--- NOTE | 2022-05-27 19:47 | PN ---
Date of Progress Note: 05/27/2022 The patient states he feels back to baseline this afternoon. He has had no episodes while he has bee n here. However, his movement has been somewhat limited due to his prior back and shoulder issues. We will continue to monitor. Awaiting cardiology consult. If, in fact, no abnormality is noted, pro bably discharge in the a.m. on a prolonged monitor. He has been off his blood pressure medicine for months now and has been stable. However, the last blood pressure reading has been slightly elevated. We will continue to monitor. He was encouraged to at least continue sitting as much as possible an d to mobilize as much as possible. HR/MODL Voice ID: [id number] Report ID: [id number]
--- NOTE | 2022-05-27 19:47 | HP ---
Date of Admission: 05/27/2022 History Of Present Illness: The patient states he was lying in bed, watching the [employer] game when he noticed some funny feeling in his chest and some, what he felt was a skipped beat. It had not assoc iated with any pain, perhaps some shortness of breath. No sweating. He then got up after a couple o f episodes. He went to the kitchen and that is where he has near syncope episode. Since that time jace gordon states he has had a few more episodes. However, since he is transported here and here in the ER, jace gordon has not had any further episodes. He does state that he recently had a cardiac workup by his cardi ologist, Dr. Atkins who did mention he had a few extra beats, but he did not think that they were si gnificant. Past Medical History: Patient has history of hypertension which he states has been controlled withou t his medication which was losartan with HCTZ over the past month or so. He also had a carcinoma of the shoulder. [facility] He had trauma to this area a couple weeks ago and had extensive imaging which did not reveal any fractures. However, the upper part of the hum erus was not completed. This will be shown to radiologist the next day or so. Family History: Noncontributory. Social History: Nonsmoker, nondrinker. Physical Examination: General: Patient is a stable appearing elderly male with stable vital signs. Head and Neck: Normocephalic. Pupils equal and reactive to accommodation. Fundi negative. Trachea midline. Thyroid not palpable. ENT: Negative. Chest: Clear to P and A. Cardiovascular: PMI midclavicular line. Heart: Sounds normal. Peripheral pulses are present and equal bilaterally. Abdomen: No organomegaly. Bowel sounds present. Extremities: Normal limits except for the decreased motion in all directions of the left upper arm a nd decreased motion of lower back. However, this has been present for sometimes. No significant mary kay nge. Rectal: Deferred. Impression: Cardiac arrhythmia. Plan: Patient will be admitted, monitored depending on the results, further intervention may be nece ssitated. HR/MODL Voice ID: [id number]
--- NOTE | 2022-05-27 21:01 | CON ---
Date of Consultation: 05/27/2022 Reason For Consultation: Syncope and palpitations. History Of Present Illness: This is a 71-year-old male with the past medical history of hypertension , renal cell carcinoma, COPD, chronic smoker of 3/4 of a pack daily. He said every morning when he w akes up to have his coffee, he starts having some funny feeling in his chest that makes him feel that he is going to pass out. After he eats something, it goes away and he has been having this repetiti vely every morning. He denies having any chest pain, shortness of breath, nausea, or vomiting. No d iarrhea. No other complaints. Past Medical History: As outlined above in HPI. Medications: Refer to reconciliation sheet for detailed list. Allergies: PENICILLIN. Family History: No premature coronary artery disease or cancer. Social History: He smokes 3/4 of a pack a day. Does not drink or use any drugs. Review of Systems: All systems reviewed and are negative except for what is mentioned in HPI. Physical Examination: Vital Signs: Reviewed. Head And Neck: Pupils are equal and reactive to light. Intact eye movements. No JVD. No cervical lymphadenopathy. Neck: Supple. Thyroid is not enlarged. Lungs: Clear to auscultation bilaterally. No rhonchi, rales, or crackles. No accessory muscle use. Heart: Regular rate and rhythm. No extra sounds. Abdomen: Soft, nontender. Bowel sounds positive. No organomegaly. No masses or hernia. No rigidi ty or rebound. Extremities: No clubbing or cyanosis. Intact pulses. Skin: No rash. Neurologic: Alert, awake, oriented x3. No acute focal deficits appreciated. Investigations: Troponin is negative. He has BUN of 33, creatinine 1.54. Hemoglobin is 13.3. Assessment And Recommendation: 1.Palpitations with near syncope. The patient will need a phototypesetting equipment monitor. Check another set of ca rdiac enzymes. If it is negative, the patient can be released and we will bring him to the office an d plan for ischemia workup and phototypesetting equipment monitor to be placed. 2.Smoker. He was counseled in detail against smoking and we will plan to follow with the patient on outpatient basis upon discharge. /SHAZIAL Voice ID: [id number] Report ID: [id number]
[2022-05-28 04:15] LABS: Hematocrit 37.2 % (39.6-49.0); Lymphocytes % 26.2 % (15.3-44.8); MCV 85.8 fL (80-100); MPV 7.8 fL (7.6-11.3); RBC Red Blood Cell Count 4.33 M/uL (4.33-5.43)
[2022-05-28 04:32] LABS: Potassium 3.8 mmol/L (3.5-5.1)
[2022-05-28] MEDS: METOPROLOL TAR 25 MG TAB PO SCH (06:26)
[2022-05-28] MEDS: MORPHINE 2 MG/ML SYR IV PRN ×2 (07:01→11:32)
[2022-05-28] MEDS ORDERED: ASPIRIN EC 81 MG TAB PO SCH (09:00)
[2022-05-28] MEDS: FAMOTIDINE 20 MG/2 ML VIAL IV SCH (09:23)
[2022-05-28 12:12] VITALS: BP 162/88; TEMP 98
--- NOTE | 2022-05-28 13:16 | RAD REPORT ---
EXAM DESCRIPTION: RAD - Chest Single View - 05/27/2022 3:02 am CLINICAL HISTORY: The patient is 71 years old and is Male; CHEST PAIN TECHNIQUE: Frontal view of the chest. COMPARISON: December 23, 2021 FINDINGS: Lungs: Prominent interstitial markings which may indicate mild interstitial edema. Hazy opacity in the left lung base. Pleural space: Blunting of the left costophrenic angle which may indicate left pleural effusion. No pneumothorax. Heart: Unremarkable. Mediastinum: Unremarkable. Bones/joints: Fracture of the right proximal humerus/humeral neck which is new compared to the pr ior exam. Chronic deformity of the right scapula/glenoid. IMPRESSION: 1. Blunting of the left costophrenic angle which may indicate left pleural effusion. 2. Prominent interstitial markings which may indicate mild interstitial edema. 3. Hazy opacity in the left lung base. 4. Fracture of the right proximal humerus/humeral neck which is new compared to the prior exam. Electronically signed by: Good Mandel MD 05/27/2022 3:19 AM CDT Due to temporary technical issues with the PACS/Fluency reporting system, reports are being signed by the in house radiologists without review as a courtesy to insure prompt reporting. The interpreting radiologist is fully responsible for the content of the report.
[2022-05-28 13:59] VITALS: O2SAT 98
--- NOTE | 2022-05-28 18:35 | EKG ---
Test Date: 2022-05-28 Test Time: 10:58:34 Manager Of Security: BYRON MEASUREMENT RESULTS: Intervals: Rate: 51 TX: 200 QRSD: 90 QT: 446 QTc: 411 [place]: P: 52 TX: 200 QRS: 59 T: 69 INTERPRETIVE STATEMENTS: Sinus bradycardia Early repolarization Otherwise normal ECG Compared to ECG 05/27/2022 03:13:57 Early repolarization now present Sinus rhythm no longer present Electronically Signed On 05-28-22 18:35:01 CDT by Matt Lobo
--- NOTE | 2022-05-28 20:23 | PN ---
Date of Progress Note: 05/28/2022 Subjective: Seen by bedside. He had an episode yesterday of SVT and he felt the same way of near sy ncope. It was caught on the manager monitoring. We started him on Toprol-XL 25 mg daily and he had n o further episodes. He feels well without any complaints this morning. Review of Systems: No chest pain, shortness of breath, orthopnea, cough, nausea, vomiting, or diarrhea. No abdominal pa in. No dysuria, polyuria, or urinary urgency. All other systems reviewed and are negative. Physical Examination: Vital Signs: Reviewed. Head And Neck: Pupils are equal and reactive to light. Intact eye movements. No JVD. No cervical lymphadenopathy. Neck: Supple. Thyroid is not enlarged. Lungs: Clear to auscultation bilaterally. No rhonchi, wheezing, or crackles. No accessory muscle u se. Heart: Regular rate and rhythm. No extra sounds. Abdomen: Soft, nontender. Bowel sounds positive. No organomegaly. No masses or hernia. No rigidi ty or rebound. Extremities: No edema, clubbing, or cyanosis. Intact pulses. Skin: No rashes. Neurologic: Alert, awake, and oriented x3. No acute focal deficits appreciated. Investigations: His BUN is 20 and creatinine 1.1. Assessment And Recommendations: 1.Near syncope due to the fast heart rate with supraventricular tachycardia. Toprol-XL 25 mg daily was started yesterday and patient's symptoms resolved. 2.Supraventricular tachycardia. Continue Toprol-XL 25 mg daily and to be discharged home on it. 3.Acute renal failure from dehydration. This has resolved. From Cardiology standpoint, this patient can be released to follow up in the office and we will plan for outpatient stress test and an echocardiogram on him as well as 1-w [place] Holter. SR/SHAZIAL Voice ID: [id number] Report ID: [id number]
--- NOTE | 2022-05-29 07:44 | ECHO ---
HEIGHT: 6 ft 1 in WEIGHT: 189 lb 15.91 oz DATE OF STUDY: 05/28/[address]: Alex Mustafa MD 2-DIMENSIONAL: YES M.MODE: YES DOPPLER: YES COLOR FLOW: YES TDS: PORTABLE: YES DEFINITY: BUBBLE STUDY: DIAGNOSIS: SYNCOPE CARDIAC HISTORY: CATHERIZATION: SURGERY: PROSTHETIC VALVE: PACEMAKER: MEASUREMENTS (cm) DIASTOLIC (NORMALS) SYSTOLIC (NORMALS) IVSd 1.0 (0.6-1.2) LA Diam 3.7 (1.9-4.0) LVEF 65% LVIDd 3.9 (3.5-5.7) LVIDs 2.5 (2.0-3.5) %FS 35% LVPWd 1.2 (0.6-1.2) Ao Diam 3.3 (2.0-3.7) 2 DIMENSIONAL ASSESSMENT: RIGHT ATRIUM: NORMAL LEFT ATRIUM: NORMAL RIGHT VENTRICLE: NORMAL LEFT VENTRICLE: NORMAL TRICUSPID VALVE: MILD TRICUSPID REGURGITATION MITRAL VALVE: MILD MITRAL REGURGITATION PULMONIC VALVE: NORMAL AORTIC VALVE: NORMAL PERICARDIAL EFFUSION: NONE AORTIC ROOT: NORMAL LEFT VENTRICULAR WALL MOTION: NORMAL DOPPLER/COLOR FLOW: MILD TRICUSPID REGURGITATION/ MILD MITRAL REGURGITATION COMMENTS: NORMAL LEFT VENTRICULAR EJECTION FRACTION 60-65%. NORMAL WALL MOTION. MILD MITRAL REGURGITATION. MILD TRICUSPID REGURGITATION. TECHNOLOGIST: DIANA DONOVAN
== END 2022-05-28 16:10 | disposition home or self-care (01) ==
LOC: ER 02:09 → ERHOLD 04:11 → 4TH 05:12
PROVIDERS: ADMIT Family Medicine; ATTEND Family Medicine
DX: I47.1 Supraventricular tachycardia (principal); N17.9 Acute kidney failure, unspecified; E86.0 Dehydration; I10 Essential (primary) hypertension; J44.9 Chronic obstructive pulmonary disease, unspecified; M81.0 Age-related osteoporosis without current pathological fracture; F17.210 Nicotine dependence, cigarettes, uncomplicated; Z71.6 Tobacco abuse counseling; Z85.528 Personal history of other malignant neoplasm of kidney; Z90.5 Acquired absence of kidney; Z88.0 Allergy status to penicillin; Z20.822 Contact with and (suspected) exposure to COVID-19
CPT/HCPCS: 93005 ×3; 93306; 85025 ×2; 80048 ×2; 36415 ×2; 83735; 85610; 80076; 84443; 84484; 83690; 83880; 71045; 99284; 87811; J2270 ×4; J7030; G0378 ×3